=== PATIENT | male | born 1965 | race Caucasian/White ===

== ENCOUNTER → 2018-08-03 09:20 | Outpatient (CLI) | payer OTHER, SELFPAY ==
--- NOTE | 2018-08-03 09:22 | DI.RAD.S_ITS ---
PROCEDURE: XR CHEST 2V INDICATIONS: cough TECHNIQUE: 2 views of the chest were acquired. COMPARISON: None. FINDINGS: Surgical changes and devices: None. Lungs and pleura: No pleural effusions or pneumothorax. Lungs are clear. Mediastinum: Mediastinal contours are normal. Heart size is normal. Bones and chest wall: No suspicious bony abnormalities. Soft tissues appear unremarkable. IMPRESSION: No acute cardiopulmonary disease process. Dictated by: Carin Davis MD, PhD on 08/03/2018 at 9:27 Approved by: Carin Davis MD, PhD on 08/03/2018 at 9:27
[2018-08-03 10:30] LABS: Add Manual Diff / Slide Review NO; Basophils Percent Auto 0.4 % (0-2); Eosinophils Percent Auto 0.6 % (2-4); Hemoglobin 14.7 g/dL (13.5-17.5); Mean Corpuscular HGB Conc 33.5 % (30-36); Mean Corpuscular Hemoglobin 29.4 PG (26-34); Mean Corpuscular Volume 87.9 fL (80-100); Monocytes Percent Auto 9.9 % (3-14); Neutrophils Absolute Auto 6200 /uL (3000-5900); Neutrophils Percent Auto 64.1 % (50-75); Platelet Count 270 X10^3/uL (150-400); Red Cell Distribution Width 13.6 % (11.6-14.8); White Blood Cell Count 9.6 X10^3/uL (4.5-11.0)
[2018-08-03 10:53] LABS: Alanine Aminotransferase 34 IU/L (21-72); Albumin 4.4 g/dL (3.5-5.0); Albumin Globulin Ratio 1.6 (1.0-2.8); Alkaline Phosphatase 59 U/L (38-126); Aspartate Aminotransferase 24 IU/L (17-59); BUN Creatinine Ratio 16.3 (6-22); Bilirubin Total 0.5 mg/dL (0.2-1.3); Blood Urea Nitrogen 13 mg/dL (9-20); Calcium 9.7 mg/dL (8.4-10.2); Carbon Dioxide 28 mmol/L (22-32); Chloride 104 mmol/L (98-107); Estimated Glomerular Filt Rate > 60.0 mL/min (>60); Globulin 2.7 g/dL (1.7-4.1); Glucose 96 mg/dL (70-100); HEMOLYSIS < 15 (0-50); Potassium 4.7 mmol/L (3.4-5.1); Sodium 143 mmol/L (137-145); Total Protein 7.1 g/dL (6.3-8.2)
[2018-08-03 11:23] LABS: TSH w/ Reflex to FT4 0.71 uIU/mL (0.47-4.68)
== END ==
PROVIDERS: Visit Provider Physician Assistant
DX: R05 Cough (principal); R53.83 Other fatigue
CPT/HCPCS: 36415; 71046; 80053; 84443; 85025

== ENCOUNTER → 2020-07-06 09:22 | Outpatient (CLI) | payer OTHER, SELFPAY ==
[2020-07-08 09:08] LABS: COVID19 Sendout Not Detected (Not Detected)
== END ==
PROVIDERS: Visit Provider Physician Assistant
DX: Z11.59 Encounter for screening for other viral diseases (principal)
CPT/HCPCS: 87635

== ENCOUNTER 2020-07-08 08:27 | Inpatient (IN) | payer OTHER, SELFPAY ==
[2020-07-08] VITALS (29 sets, daily range): BP systolic 105–131; BP diastolic 50–74; PULSE 61–94; RESP 18–32; TEMP 36.9–39.1; O2SAT 94–99; BMI 24.4
--- NOTE | 2020-07-08 09:01 | DI.RAD.S_ITS ---
PROCEDURE: XR CHEST 1V INDICATIONS: sob TECHNIQUE: One view of the chest was acquired. COMPARISON: [facility], CR, XR CHEST 2V, 08/03/2018, 8:58. FINDINGS: Surgical changes and devices: None. Lungs and pleura: Mild airspace opacity at the left lung base. No pleural effusions or pneumothorax. Mediastinum: Mediastinal contours appear unchanged. Heart size is within normal limits. Bones and chest wall: No suspicious bony lesions. Overlying soft tissues appear unremarkable. IMPRESSION: Mild airspace opacity at the left lung base/inferior left upper lobe. This could represent pneumonia, atelectasis, or aspiration Dictated by: Juan Jose Russell M.D. on 07/08/2020 at 9:39 Approved by: Juan Jose Russell M.D. on 07/08/2020 at 9:41
--- NOTE | 2020-07-08 09:05 | ED_ITS ---
HPI - SOB/Dyspnea General Chief Complaint: Shortness of Breath/Dyspnea Stated Complaint: COVID, DIFFICULTY BREATHING Time Seen by Provider: 07/08/20 08:45 Source: patient Mode of arrival: Ambulatory Limitations: no limitations History of Present Illness HPI Narrative: Patient complains of dyspnea fever chills and dry cough for the past 3 days. Seen at an outpatient clinic and had code swab 2 days ago, results are pending. Temperature noted today. Has not taken any Tylenol or Motrin. Has not tried any medications for relief. Complains of body aches fatigue and tired and feeling very sleepy. Denies any specific contact with covid positive patient. Has nausea but no vomiting. No diarrhea. Related Data Previous Rx's Medication Instructions Recorded hydrocodone 5 mg-acetaminophen 325 1 tab PO Q4-6H PRN #20 tab 01/27/19 mg tablet mupirocin 2 % topical ointment 1 applictn TOP TID #15 gram 01/27/19 Allergies Allergy/AdvReac Type Severity Reaction Status Date / Time No Known Drug Allergies Allergy Verified 07/08/20 09:11 Review of Systems Review of Systems Narrative: GENERAL: Complains of chills, fatigue, malaise, fever, sweats. HEENT: Denies sinus pain, ear pain, sore throat, difficulty swallowing, dizziness. RESPIRATORY: Complains of dyspnea, cough, denies wheezing, hemoptysis, sputum. CARDIOVASCULAR: Denies chest pain, palpitations, orthopnea, edema, GASTROINTESTINAL: Denies nausea, vomiting, abdominal pain, diarrhea, constipation, melena. : Denies dysuria, frequency, incontinence, hematuria, urinary retention. MUSCULOSKELETAL: Complains of weakness, joint pain, and muscle aches SKIN: Denies rash, skin lesions, or other NEUROLOGIC: Denies weakness, headache, numbness, change in speech, confusion, seizures, incoordination. PSYCHIATRIC: No concerning psychosocial issues. ROS Unobtainable: All systems reviewed & are unremarkable except as noted in HPI and below Patient History Social History household members: spouse Smoking Status: Current every day smoker Smoking Status: Current every day smoker alcohol intake frequency: holidays/special occasions only Substance Use Type: marijuana Exam Narrative Exam Narrative: GENERAL: patient appears stated age. Well-nourished, well- developed patient, in no distress, not toxic HEAD: Atraumatic. Normocephalic. EYES: Pupils equal round and reactive. Extraocular motions intact. No scleral icterus. No injection or drainage. ENT: Nose without bleeding, purulent drainage. Throat without erythema, tonsillar hypertrophy or exudate. Airway patent. NECK: Trachea midline. Non tender CARDIOVASCULAR: Regular rate and rhythm without murmurs, gallops, or rubs. RESPIRATORY: Clear to auscultation. Breath sounds equal bilaterally. No wheezes, rales, or rhonchi. Speaks full sentences GASTROINTESTINAL: Abdomen soft, non-tender, nondistended. EXTREMITIES: No edema or joint tenderness. BACK: Nontender without deformity or crepitance. No flank tenderness. NEURO: AOx3. SKIN: No rash or erythema of visible areas PSYCH: Not anxious, is cooperative Initial Vital Signs Initial Vital Signs: Vital Signs Temperature 100.1 F H 07/08/20 08:44 Pulse Rate 79 07/08/20 08:44 Respiratory Rate 25 H 07/08/20 08:44 Blood Pressure 120/56 L 07/08/20 08:44 Pulse Oximetry 96 07/08/20 08:44 Course Course Decision to Admit Date: 07/08/20 Decision to Admit time: 11:06 Orders Ordered: ED Orders 07/08/20 08:50 Complete Blood Count AUTO DIFF Stat Comprehensive Metabolic Panel Stat Lactate (Lactic Acid) Stat Procalcitonin Stat 07/08/20 09:01 XR chest 1V Stat 07/08/20 11:20 Arterial Blood Gas Stat 07/08/20 11:44 Blood Culture Stat Acetaminophen (Tylenol) 650 mg PO Q6HR PRN PRN Reason: Fever/Mild Pain (1-3) Last Admin: 07/08/20 15:34 Dose: 650 mg Documented by: AMY Baclofen (Lioresal) 10 mg PO TID PRN PRN Reason: hiccups Last Admin: 07/08/20 15:34 Dose: 10 mg Documented by: AMY Calcium Carbonate (Tums) 1,000 mg PO Q4HR PRN PRN Reason: Dyspepsia Enoxaparin Sodium (Lovenox) 40 mg SUBCUT DAILY PARVEZ Sodium Chloride (Normal Saline 0.45%) 1,000 mls @ 100 mls/hr IV CONT PARVEZ Stop: 07/08/20 22:59 Last Admin: 07/08/20 14:55 Dose: 100 mls/hr Documented by: ROMELIA Ceftriaxone Sodium/Dextrose (Rocephin) 2 gm in 50 mls @ 100 mls/hr IV Q24H PARVEZ Azithromycin 500 mg/ Dextrose 250 mls @ 250 mls/hr IV Q24H PARVEZ Magnesium Hydroxide (Milk Of Magnesia) 30 ml PO DAILY PRN PRN Reason: Constipation Nicotine (Nicoderm) 14 mg TOP DAILY PRN PRN Reason: nicotine withdrawal Last Admin: 07/08/20 15:34 Dose: 14 mg Documented by: AMY Ondansetron HCl (Zofran) 4 mg IV Q8HR PRN PRN Reason: Nausea And Vomiting Zolpidem Tartrate (Ambien) 5 mg PO BEDTIME PRN PRN Reason: Sleep Discontinued Medications Acetaminophen (Tylenol) 975 mg PO NOW ONE Stop: 07/08/20 09:03 Last Admin: 07/08/20 09:06 Dose: 975 mg Documented by: SHAVONNE Albuterol/Ipratropium (Duoneb) 3 ml INH NOW ONE Stop: 07/08/20 11:05 Last Admin: 07/08/20 11:34 Dose: 3 ml Documented by: JEAN-CLAUDE Sodium Chloride (Normal Saline 0.9%) 1,000 mls @ 1,000 mls/hr IV BOLUS ONE Stop: 07/08/20 10:01 Last Infusion: 07/08/20 10:23 Dose: 0 mls/hr Documented by: Admin: 07/08/20 09:06 Dose: 1,000 mls/hr Documented by: SHAVONNE Ceftriaxone Sodium/Dextrose (Rocephin) 1 gm in 50 mls @ 100 mls/hr IV NOW ONE Stop: 07/08/20 11:32 Last Infusion: 07/08/20 12:18 Dose: 0 mls/hr Documented by: Admin: 07/08/20 11:49 Dose: 100 mls/hr Documented by: SHAVONNE Azithromycin 500 mg/ Dextrose 250 mls @ 250 mls/hr IV NOW ONE Stop: 07/08/20 11:04 Last Infusion: 07/08/20 13:18 Dose: 0 mls/hr Documented by: Admin: 07/08/20 11:25 Dose: 250 mls/hr Documented by: SHAVONNE Ondansetron HCl (Zofran) 4 mg IV NOW ONE Stop: 07/08/20 11:04 Last Admin: 07/08/20 11:26 Dose: 4 mg Documented by: SHAVONNE Pantoprazole Sodium (Protonix) 40 mg IV NOW ONE Stop: 07/08/20 11:05 Last Admin: 07/08/20 11:26 Dose: 40 mg Documented by: SHAVONNE Reevaluation(s) Reevaluation #1: Patient ambulated in hallway room air 95 96% however very tachypneic and dyspneic. Respiratory rate 28. Patient states he feels very winded and tired now Time: 11:06 Consultations Consultation #1: Spoke with hospitalist Dr. hanley, will admit Time: 12:37 Vital Signs Vital signs: Vital Signs - 8 hr 07/08/20 08:44 07/08/20 08:46 07/08/20 09:00 Temperature 100.1 F H Pulse Rate 79 73 78 Respiratory Rate 25 H Blood Pressure 120/56 L Pulse Oximetry 96 96 97 07/08/20 09:01 07/08/20 09:06 07/08/20 09:30 Temperature 100.1 F H Pulse Rate 79 76 Respiratory Rate Blood Pressure 131/60 111/55 L Pulse Oximetry 97 97 07/08/20 10:00 07/08/20 10:23 07/08/20 10:30 Temperature 98.5 F Pulse Rate 66 73 Respiratory Rate Blood Pressure 125/60 115/59 L Pulse Oximetry 95 94 07/08/20 10:50 07/08/20 11:00 07/08/20 11:30 Temperature Pulse Rate 66 63 Respiratory Rate Blood Pressure Pulse Oximetry 96 97 96 07/08/20 11:40 07/08/20 11:50 07/08/20 12:00 Temperature Pulse Rate 61 68 67 Respiratory Rate 32 H Blood Pressure 114/63 120/70 Pulse Oximetry 99 96 97 07/08/20 12:30 Temperature Pulse Rate 73 Respiratory Rate Blood Pressure 115/63 Pulse Oximetry 98 MDM - SOB/Dyspnea Lab Data Result diagrams: 07/08/20 08:50 07/08/20 08:50 Labs: Lab Results 07/08/20 07/08/20 07/08/20 Range/Units 08:50 08:50 08:50 WBC 9.1 (4.5-11.0) X10^3/uL RBC 4.14 L (4.5-5.9) X10^6/uL Hgb 12.2 L (13.5-17.5) g/dL Hct 35.3 L (41-53) % MCV 85.3 (80-100) fL MCH 29.4 (26-34) PG MCHC 34.5 (30-36) % RDW 13.1 (11.6-14.8) % Plt Count 123 L (150-400) X10^3/uL Neut % (Auto) 82.2 H (50-75) % Lymph % (Auto) 6.7 L (25-40) % [place] % (Auto) 11.0 (3-14) % Eos % (Auto) 0.0 L (2-4) % Baso % (Auto) 0.1 (0-2) % Neut # (Auto) 7500 H (5455-7086) /uL Lymph # (Auto) 600 L (6031-7170) /uL [place] # (Auto) 1000 H (0-900) /uL Eos # (Auto) 0 (0-450) /uL Baso # (Auto) 0 (0-100) /uL ABG pH (7.35-7.45) ABG pCO2 (35-45) mmHg ABG pO2 (80-100) mmHg ABG HCO3 (22-26) mmol/L ABG Total CO2 (21-31) mmol/L ABG O2 Saturation (95-100) % ABG Base Excess (-2-2) mmol/L FiO2 Sodium 125 L (137-145) mmol/L Potassium 3.5 (3.4-5.1) mmol/L Chloride 90 L (98-107) mmol/L Carbon Dioxide 26 (22-32) mmol/L BUN 25 H (9-20) mg/dL Creatinine 1.21 (0.66-1.25) mg/dL Estimated GFR > 60.0 (>60) mL/min BUN/Creatinine Ratio 20.7 (6-22) Glucose 129 H (70-100) mg/dL Hemoglobin A1c (4.0-6.0) % Lactate (0.7-2.1) mmol/L Calcium 8.7 (8.4-10.2) mg/dL Iron (49-181) ug/dL TIBC (261-462) ug/dL % Saturation (20-50) % Transferrin (206-381) mg/dL Ferritin (18-464) ng/mL Total Bilirubin 1.3 (0.2-1.3) mg/dL AST 43 (17-59) IU/L ALT 36 (<50) IU/L Alkaline Phosphatase 48 (38-126) U/L Total Protein 7.0 (6.3-8.2) g/dL Albumin 3.8 (3.5-5.0) g/dL Globulin 3.2 (1.7-4.1) g/dL Albumin/Globulin Ratio 1.2 (1.0-2.8) Procalcitonin 1.18 H (<0.5) ng/mL COVID-19 PCR (Negative) 07/08/20 07/08/20 07/08/20 Range/Units 08:50 08:50 08:51 WBC (4.5-11.0) X10^3/uL RBC (4.5-5.9) X10^6/uL Hgb (13.5-17.5) g/dL Hct (41-53) % MCV (80-100) fL MCH (26-34) PG MCHC (30-36) % RDW (11.6-14.8) % Plt Count (150-400) X10^3/uL Neut % (Auto) (50-75) % Lymph % (Auto) (25-40) % [place] % (Auto) (3-14) % Eos % (Auto) (2-4) % Baso % (Auto) (0-2) % Neut # (Auto) (6431-9266) /uL Lymph # (Auto) (0436-3893) /uL [place] # (Auto) (0-900) /uL Eos # (Auto) (0-450) /uL Baso # (Auto) (0-100) /uL ABG pH (7.35-7.45) ABG pCO2 (35-45) mmHg ABG pO2 (80-100) mmHg ABG HCO3 (22-26) mmol/L ABG Total CO2 (21-31) mmol/L ABG O2 Saturation (95-100) % ABG Base Excess (-2-2) mmol/L FiO2 Sodium (137-145) mmol/L Potassium (3.4-5.1) mmol/L Chloride (98-107) mmol/L Carbon Dioxide (22-32) mmol/L BUN (9-20) mg/dL Creatinine (0.66-1.25) mg/dL Estimated GFR (>60) mL/min BUN/Creatinine Ratio (6-22) Glucose (70-100) mg/dL Hemoglobin A1c 5.5 (4.0-6.0) % Lactate 1.2 (0.7-2.1) mmol/L Calcium (8.4-10.2) mg/dL Iron (49-181) ug/dL TIBC (261-462) ug/dL % Saturation (20-50) % Transferrin (206-381) mg/dL Ferritin (18-464) ng/mL Total Bilirubin (0.2-1.3) mg/dL AST (17-59) IU/L ALT (<50) IU/L Alkaline Phosphatase (38-126) U/L Total Protein (6.3-8.2) g/dL Albumin (3.5-5.0) g/dL Globulin (1.7-4.1) g/dL Albumin/Globulin Ratio (1.0-2.8) Procalcitonin (<0.5) ng/mL COVID-19 PCR Negative (Negative) 07/08/20 07/08/20 07/08/20 Range/Units 08:58 08:58 11:20 WBC (4.5-11.0) X10^3/uL RBC (4.5-5.9) X10^6/uL Hgb (13.5-17.5) g/dL Hct (41-53) % MCV (80-100) fL MCH (26-34) PG MCHC (30-36) % RDW (11.6-14.8) % Plt Count (150-400) X10^3/uL Neut % (Auto) (50-75) % Lymph % (Auto) (25-40) % [place] % (Auto) (3-14) % Eos % (Auto) (2-4) % Baso % (Auto) (0-2) % Neut # (Auto) (9021-3411) /uL Lymph # (Auto) (4582-2022) /uL [place] # (Auto) (0-900) /uL Eos # (Auto) (0-450) /uL Baso # (Auto) (0-100) /uL ABG pH 7.47 H (7.35-7.45) ABG pCO2 27.7 L (35-45) mmHg ABG pO2 72 L (80-100) mmHg ABG HCO3 20 L (22-26) mmol/L ABG Total CO2 21 (21-31) mmol/L ABG O2 Saturation 96 (95-100) % ABG Base Excess -3.0 L (-2-2) mmol/L FiO2 0.21 Sodium (137-145) mmol/L Potassium (3.4-5.1) mmol/L Chloride (98-107) mmol/L Carbon Dioxide (22-32) mmol/L BUN (9-20) mg/dL Creatinine (0.66-1.25) mg/dL Estimated GFR (>60) mL/min BUN/Creatinine Ratio (6-22) Glucose (70-100) mg/dL Hemoglobin A1c (4.0-6.0) % Lactate (0.7-2.1) mmol/L Calcium (8.4-10.2) mg/dL Iron 24 L (49-181) ug/dL TIBC 258 L (261-462) ug/dL % Saturation 9 L (20-50) % Transferrin 173 L (206-381) mg/dL Ferritin 610 H (18-464) ng/mL Total Bilirubin (0.2-1.3) mg/dL AST (17-59) IU/L ALT (<50) IU/L Alkaline Phosphatase (38-126) U/L Total Protein (6.3-8.2) g/dL Albumin (3.5-5.0) g/dL Globulin (1.7-4.1) g/dL Albumin/Globulin Ratio (1.0-2.8) Procalcitonin (<0.5) ng/mL COVID-19 PCR (Negative) Imaging Data Chest x-ray: Radiologist's Impression: [address] [address] XRay Report Signed Patient: MaryanneBlayne GMR#: [id number] : 1965Acct:[id number] Age/Sex: 54 / MDate of Service: 07/08/20 Loc: ED Accession Number: [id number] Procedure: XR chest 1V Ordering Provider: Saud Ho MD PROCEDURE: XR CHEST 1V INDICATIONS: sob TECHNIQUE: One view of the chest was acquired. COMPARISON: Merged With [facility], CR, XR CHEST 2V, 08/03/2018, 8:58. FINDINGS: Surgical changes and devices: None. Lungs and pleura: Mild airspace opacity at the left lung base. No pleural effusions or pneumothorax. Mediastinum: Mediastinal contours appear unchanged. Heart size is within norm al limits. Bones and chest wall: No suspicious bony lesions. Overlying soft tissues appear unremarkable. IMPRESSION: Mild airspace opacity at the left lung base/inferior left upper lobe. This could represent pneumonia, atelectasis, or aspiration Dictated by: Juan Jose Russell M.D. on 07/08/2020 at 9:39 Approved by: Juan Jose Russell M.D. on 07/08/2020 at 9:41 MDM Narrative Medical decision making narrative: Patient ABG PO2 below normal range. Patient dyspneic on exertion and at rest. Clinically needs admission for overnight stay for community-acquired pneumonia Discharge Plan Departure Patient Disposition: Admitted as Observation Clinical Impression: Acute hyponatremia, Thrombocytopenia Community acquired pneumonia Qualifiers: Laterality: left Lung location: unspecified part of lung Qualified Code(s): J 18.9 - Pneumonia, unspecified organism Discharge Date/Time: 07/08/20 14:00 Admit Date/Time: 07/08/20 12:40 Admit Provider: Margy Hanley
[2020-07-08] MEDS: ACETAMINOPHEN 325 MG TABLET 975 MG PO (09:06)
[2020-07-08] MEDS: SODIUM CHLORIDE 0.9% 1,000 ML 1000 ML IV (09:06)
[2020-07-08 09:10] LABS: Add Manual Diff / Slide Review NO; Basophils Absolute Auto 0 /uL (0-100); Basophils Percent Auto 0.1 % (0-2); Eosinophils Absolute Auto 0 /uL (0-450); Hematocrit 35.3 % (41-53); Hemoglobin 12.2 g/dL (13.5-17.5); Lymphocytes Absolute Auto 600 /uL (1100-4500); Lymphocytes Percent Auto 6.7 % (25-40); Mean Corpuscular HGB Conc 34.5 % (30-36); Mean Corpuscular Hemoglobin 29.4 PG (26-34); Mean Corpuscular Volume 85.3 fL (80-100); Monocytes Absolute Auto 1000 /uL (0-900); Neutrophils Absolute Auto 7500 /uL (1500-7000); Neutrophils Percent Auto 82.2 % (50-75); Platelet Count 123 X10^3/uL (150-400); Red Blood Cell Count 4.14 X10^6/uL (4.5-5.9); Red Cell Distribution Width 13.1 % (11.6-14.8); White Blood Cell Count 9.1 X10^3/uL (4.5-11.0)
[2020-07-08 09:21] LABS: Lactate (Lactic Acid) 1.2 mmol/L (0.7-2.1)
[2020-07-08 09:22] LABS: Alanine Aminotransferase 36 IU/L (<50); Albumin 3.8 g/dL (3.5-5.0); Albumin Globulin Ratio 1.2 (1.0-2.8); Alkaline Phosphatase 48 U/L (38-126); Aspartate Aminotransferase 43 IU/L (17-59); BUN Creatinine Ratio 20.7 (6-22); Bilirubin Total 1.3 mg/dL (0.2-1.3); Blood Urea Nitrogen 25 mg/dL (9-20); Calcium 8.7 mg/dL (8.4-10.2); Carbon Dioxide 26 mmol/L (22-32); Chloride 90 mmol/L (98-107); Estimated Glomerular Filt Rate > 60.0 mL/min (>60); Globulin 3.2 g/dL (1.7-4.1); Glucose 129 mg/dL (70-100); HEMOLYSIS < 15 (0-50); Potassium 3.5 mmol/L (3.4-5.1); Sodium 125 mmol/L (137-145)
[2020-07-08 09:38] LABS: Procalcitonin 1.18 ng/mL (<0.5)
[2020-07-08 10:06] LABS: COVID19 -Nasal RAPID Negative (Negative)
--- NOTE | 2020-07-08 10:57 | PC.NURSE ---
Ambulated patient per Dr Ho request. Pulse ox remained at 96% on RA. Patient reported nausea but denied shortness or breath. Provider notified.
[2020-07-08] MEDS: AZITHROMYCIN 500 MG in DEXTROSE 5% IN WATER 250 ML IV (11:25)
[2020-07-08] MEDS: PANTOPRAZOLE 40 MG VIAL IV (11:26)
[2020-07-08] MEDS: ONDANSETRON 4 MG/2 ML INJ IV (11:26)
[2020-07-08] MEDS: ALBUTEROL/IPRATROPIUM 3 ML AMPUL INH (11:34)
[2020-07-08] MEDS: CEFTRIAXONE 1 GM/50 ML FROZ.PIGGY IV (11:49)
[2020-07-08 11:56] LABS: HCO3 ABG 20 mmol/L (22-26); Oxygen Saturation ABG 96 % (95-100); PCO2 ABG 27.7 mmHg (35-45); PO2 ABG 72 mmHg (80-100); TCO2 ABG 21 mmol/L (21-31); pH ABG 7.47 (7.35-7.45)
[2020-07-08 11:57] LABS: Fractionated Inspired Oxygen 0.21
--- NOTE | 2020-07-08 13:01 | P.HP_ITS ---
History of Present Illness History of Present Illness Date Patient Seen: 07/08/20 Time Patient Seen: 12:45 Date of Onset of Symptoms: 07/04/20 Chief complaint: COVID, DIFFICULTY BREATHING Narrative: Patient is a 54-year-old male smoker who presented to the emergency department with complaints of fevers, chills, sweats and shortness of breath for the previous 4-5 days. He 1st became ill on TuesdayJuly 04 when developed severe fatigue, chills and sweats, and dry cough. He was concerned about COVID and isolated himself in the garage and contacted his workplace. He got tested on July 06 at the walk-in clinic which subsequently came back negative for COVID-19. His symptoms have worsened over the past 4-5 days prompting him to c ome to the ER for evaluation. His temp was 100.1? with otherwise normal vitals. On room air blood gas his PO2 is 72. His sodium was 125, BUN 25 and creatinine 1.21. His glucose was 129. He has not eaten much in the past few days. He has also had some nausea, vomiting and diarrhea. His WBC was 9.1 with left shift, hemoglobin 12.2, hematocrit 35.3, platelets 123. Procalcitonin 1.18. Normal la ctate level of 1.2. Chest x-ray showed infiltrate at left lung base and inferior left lobe. Additionally he has had intractable hiccups the last day. And he reports some symptoms of delirium with seeing things while isolated in the garage. Patient smokes less than 1 pack per day with 43 year smoking history. No EtOH. Family history unremarkable for cancers, CAD or diabetes. He works at [employer]. Patient History Family & Social History Safety & Behavioral: Feels Safe in Current Yes Environment Tobacco & Substance use: Smoking Status Current every day smoker alcohol intake frequency holiday/special occasion Substance Use Type marijuana Meds Home Medications and Allergies Home Medications Medication Instructions Recorded Confirmed Type hydrocodone 5 mg-acetaminophen 325 1 tab PO Q4-6H PRN #20 tab 01/27/19 Rx mg tablet mupirocin 2 % topical ointment 1 applictn TOP TID #15 gram 01/27/19 Rx Allergies Allergy/AdvReac Type Severity Reaction Status Date / Time No Known Drug Allergies Allergy Verified 07/08/20 09:11 Review of Systems Review of Systems ROS: Yes All systems reviewed with the patient and are negative except as otherwise documented Exam Vital Signs (past 8 hours): - 07/08/20 08:44 07/08/20 08:46 07/08/20 09:00 Temperature 100.1 F H Pulse Rate 79 73 78 Respiratory Rate 25 H Blood Pressure 120/56 L Pulse Oximetry 96 96 97 07/08/20 09:01 07/08/20 09:06 07/08/20 09:30 Temperature 100.1 F H Pulse Rate 79 76 Respiratory Rate Blood Pressure 131/60 111/55 L Pulse Oximetry 97 97 07/08/20 10:00 07/08/20 10:23 07/08/20 10:30 Temperature 98.5 F Pulse Rate 66 73 Respiratory Rate Blood Pressure 125/60 115/59 L Pulse Oximetry 95 94 07/08/20 10:50 07/08/20 11:00 07/08/20 11:30 Temperature Pulse Rate 66 63 Respiratory Rate Blood Pressure Pulse Oximetry 96 97 96 07/08/20 11:40 07/08/20 11:50 07/08/20 12:00 Temperature Pulse Rate 61 68 67 Respiratory Rate 32 H Blood Pressure 114/63 120/70 Pulse Oximetry 99 96 97 07/08/20 12:30 Temperature Pulse Rate 73 Respiratory Rate Blood Pressure 115/63 Pulse Oximetry 98 Oxygen Delivery Method Room Air Narrative Exam Narrative: GENERAL: This is an alert but ill-appearing male. HEAD: Atraumatic. Normocephalic. EYES: Pupils equal, round and reactive. Extraocular motions intact. No scleral icterus. No injection or drainage. OROPHARYNX: Dry oral mucosa NECK: Trachea midline. No JVD or lymphadenopathy. CARDIOVASCULAR: Regular rate and rhythm without murmurs, gallops, or rubs. RESPIRATORY: Breathing nonlabored, there are crackles in the left lower lobe, no wheezing. GASTROINTESTINAL: Abdomen nondistended, soft, non-tender. No hepato- splenomegaly, or palpable masses. EXTREMITIES: No edema. NEUROLOGICAL: Alert, well oriented, speech is intact, normal bilateral upper and lower extremity strength SKIN: warm, dry, no rash Objective Labs Result Diagrams: 07/08/20 08:50 07/08/20 08:50 Labs: Laboratory Results - last 24 hr 07/08/20 07/08/20 07/08/20 08:50 08:50 08:50 WBC 9.1 RBC 4.14 L Hgb 12.2 L Hct 35.3 L MCV 85.3 MCH 29.4 MCHC 34.5 RDW 13.1 Plt Count 123 L Neut % (Auto) 82.2 H Lymph % (Auto) 6.7 L [place] % (Auto) 11.0 Eos % (Auto) 0.0 L Baso % (Auto) 0.1 Neut # (Auto) 7500 H Lymph # (Auto) 600 L [place] # (Auto) 1000 H Eos # (Auto) 0 Baso # (Auto) 0 ABG pH ABG pCO2 ABG pO2 ABG HCO3 ABG Total CO2 ABG O2 Saturation ABG Base Excess FiO2 Sodium 125 L Potassium 3.5 Chloride 90 L Carbon Dioxide 26 BUN 25 H Creatinine 1.21 Estimated GFR > 60.0 BUN/Creatinine Ratio 20.7 Glucose 129 H Lactate Calcium 8.7 Total Bilirubin 1.3 AST 43 ALT 36 Alkaline Phosphatase 48 Total Protein 7.0 Albumin 3.8 Globulin 3.2 Albumin/Globulin Ratio 1.2 Procalcitonin 1.18 H COVID-19 PCR 07/08/20 07/08/20 07/08/20 08:50 08:51 11:20 WBC RBC Hgb Hct MCV MCH MCHC RDW Plt Count Neut % (Auto) Lymph % (Auto) [place] % (Auto) Eos % (Auto) Baso % (Auto) Neut # (Auto) Lymph # (Auto) [place] # (Auto) Eos # (Auto) Baso # (Auto) ABG pH 7.47 H ABG pCO2 27.7 L ABG pO2 72 L ABG HCO3 20 L ABG Total CO2 21 ABG O2 Saturation 96 ABG Base Excess -3.0 L FiO2 0.21 Sodium Potassium Chloride Carbon Dioxide BUN Creatinine Estimated GFR BUN/Creatinine Ratio Glucose Lactate 1.2 Calcium Total Bilirubin AST ALT Alkaline Phosphatase Total Protein Albumin Globulin Albumin/Globulin Ratio Procalcitonin COVID-19 PCR Negative Assessment & Plan Assessment & Plan narrative: This is a 54-year-old male smoker presenting with respiratory symptoms, chest x-ray consistent with left lung pneumonia. 1. Bacterial pneumonia, present on admission, active -presents with fevers, chills, cough, left lung infiltrates, elevated procalcitonin, normal WBC, normal lactate, negative COVID-19 x2 -continue Rocephin IV, Zithromax IV -Tylenol as needed -supplemental O2 if needed, not currently hypoxic -repeat CBC, procalcitonin in a.m. -follow-up on blood cultures 2. Acute dehydration, present on admission, active -sodium 125, BUN 25, creatinine 1.21, reported not eating or taking much fluids last few days -received 1 L NS in the ED, provide additional 1 L NS 100 cc/hour -repeat BMP in a.m. 3. Thrombocytopenia, normocytic anemia, present on admission, active -acuity unknown but likely acute illness related -obtain iron profile, ferritin -repeat CBC in a.m. 4. Hyperglycemia, present on admission, active -serum glucose 129, likely stress hyperglycemia -check hemoglobin A1c 5. Nausea, vomiting and diarrhea, present on admission, active -related to pneumonia -provide Zofran as needed -diet as tolerated 6. Acute encephalopathy, present prior to admission, now resolved -as noted patient was seeing things but currently without evidence of delirium, continue to monitor 7. Intractable hiccups, present on admission, active -secondary to lower lobe pneumonia -baclofen 10 mg t.i.d. as needed Admit status: Inpatient acute DPOA: Spouse DVT prophylaxis: Lovenox
[2020-07-08 13:55] LABS: Hemoglobin A1C% w Est Avg Glu 5.5 % (4.0-6.0)
--- NOTE | 2020-07-08 14:08 | PC.NURSE ---
Day shift: Pt on AC unit from ED at approx 1400. Oriented to room and call light. Agrees to not get OOB w/o help from staff. No recent falls at home. VS WNL. IV fluids running per JAN. Pt does have an intermittent cough. He is A&Ox3. Denies any pain or nausea. 95% RA at this time.
[2020-07-08 14:28] LABS: HEMOLYSIS < 15 (0-50); Iron 24 ug/dL (49-181)
[2020-07-08 14:40] LABS: Percent Iron Saturation 9 % (20-50); Total Iron Binding Capacity 258 ug/dL (261-462); Transferrin 173 mg/dL (206-381)
[2020-07-08] MEDS: SODIUM CHLORIDE 0.45% 1,000 ML 100 ML IV (14:55)
[2020-07-08 15:04] LABS: Ferritin 610 ng/mL (18-464)
[2020-07-08] MEDS: ACETAMINOPHEN 325 MG TABLET 650 MG PO ×2 (15:34→21:27)
[2020-07-08] MEDS: NICOTINE 14 PATCH 14 MG TOP (15:34)
[2020-07-08] MEDS: BACLOFEN 10 MG TABLET PO ×2 (15:34→21:27)
--- NOTE | 2020-07-08 19:10 | PC.NURSE ---
Addendum entered by Kristina Brooks R.N. 07/08/20 22:34: pt's temp is down to 99.8. pt has a new sore throat. pt reports he had an episode of hallucination. family at bedside. bed alarm active. Original Note: febrile at the beginning of the shift, administered tylenol, removed blankets. temp went down to 100.8. placed ice packs in his armpits, pt's current temp is 100.4. continue to monitor.
--- NOTE | 2020-07-08 23:35 | PC.NURSE ---
Addendum entered by Luh Simons R.N. 07/09/20 05:39: States Nicoderm patch placed yesterday fell off at some point. Examined patient and could not find patch so replaced per patient request. Addendum entered by Luh Simons R.N. 07/09/20 05:15: Temp 100.7 and patient having repeated hiccoughs this morning; medicated with Tylenol + Baclofen. Original Note: Patient is alert and oriented. Breath sounds diminished with expiratory rhonchi throughout. Intermittent, moist, non productive cough. Some SOB at rest/with exertion but RA sat is 94%. HRR. Denies nausea. BT hypoactive but is passing flatus. Voiding per urinal without dysuria. Able to move himself in bed. Up with SBA. Reports he has been having some vivid hallucinations here about working on his laptop. Generalized discomfort. Temp 100.6 but had Tylenol at 2127 so provided ice packs and recheck at the 4h nae and reevaluate. rooming in.
[2020-07-09] VITALS (15 sets, daily range): BP systolic 96–128; BP diastolic 54–73; PULSE 73–92; RESP 16–20; TEMP 36.8–39.1; O2SAT 93–98; BMI 24.2
[2020-07-09] MEDS: ACETAMINOPHEN 325 MG TABLET 650 MG PO ×2 (05:04→10:18)
[2020-07-09] MEDS: BACLOFEN 10 MG TABLET PO (05:05)
[2020-07-09] MEDS: NICOTINE 14 PATCH 14 MG TOP (05:34)
[2020-07-09 05:58] LABS: Hematocrit 32.8 % (41-53); Hemoglobin 11.6 g/dL (13.5-17.5); Mean Corpuscular HGB Conc 35.4 % (30-36); Mean Corpuscular Hemoglobin 29.8 PG (26-34); Mean Corpuscular Volume 84.3 fL (80-100); Platelet Count 117 X10^3/uL (150-400); Red Cell Distribution Width 13.4 % (11.6-14.8)
[2020-07-09 06:02] LABS: Add Manual Diff / Slide Review YES; BUN Creatinine Ratio 22.4 (6-22); Blood Urea Nitrogen 24 mg/dL (9-20); Calcium 7.7 mg/dL (8.4-10.2); Carbon Dioxide 21 mmol/L (22-32); Chloride 91 mmol/L (98-107); Estimated Glomerular Filt Rate > 60.0 mL/min (>60); Glucose 103 mg/dL (70-100); HEMOLYSIS < 15 (0-50); Potassium 3.4 mmol/L (3.4-5.1); Sodium 122 mmol/L (137-145)
[2020-07-09 06:14] LABS: Neutrophils Absolute Manual 7120 /uL (3000-5900); RBC Morphology Normal Morphology; Total Cells Counted 100
[2020-07-09 06:43] LABS: Procalcitonin 3.39 ng/mL (<0.5)
[2020-07-09] MEDS: ENOXAPARIN 40 MG/0.4 ML SYRINGE SUBCUT (08:06)
[2020-07-09] MEDS: CEFTRIAXONE 2 GM/50 ML FROZ.PIGGY IV (08:07)
[2020-07-09] MEDS: SODIUM CHLORIDE 0.9% 250 ML 21 ML IV (08:07)
[2020-07-09] MEDS: SODIUM CHLORIDE 0.9% FLUSH 10 ML IV ×3 (08:07→21:32)
[2020-07-09] MEDS: AZITHROMYCIN 500 MG in DEXTROSE 5% IN WATER 250 ML IV (10:15)
[2020-07-09] MEDS: ONDANSETRON 4 MG/2 ML INJ IV (10:19)
--- NOTE | 2020-07-09 10:40 | CM.DANOTE ---
Patient is a 54 year old male who was admitted on 07/08/20 for Difficulty Breathing. Pt has [employer] for insurance and his PCP is not listed. EMR was reviewed. Per MD, pt with negative COVID and admitted for bacterial pneumonia and dehydration. Pt with fever and some hallucinations/delusions expected to resolve after hydrated and reduced fever and will plan to have pt ambulate today to check his sats and confirm his SOB stable. Pt resides at home with his spouse in [place] and is independent with ADL's at baseline and works and denies any need for DME for ambulation. Pt anticipates d/c home with spouse support when medically stable. Plan: SW to follow closely to confirm pt safe for d/c home with spouse likely tomorrow pending oxygen levels/sats with ambulation and resolved fever. JESENIA Lara Discharge Planning/Care Management CM Discharge Assessment Start: 07/09/20 10:39 Freq: Status: Active Protocol: Document 07/09/20 10:39 BF (Rec: 07/09/20 10:40 BF [id number]) Discharge Planning Assessment Assigned Outbound Telemarketing Representative HEVER Deras DPOA/Assigned Designee Name none Advance Directives? No Advance Directives on File No History Provided By Patient,Medical Record Has Patient been admitted in last 30 No days? Prior Living Arrangements House Household Members spouse Type of transporation used prior to Drives own vehicle admit Independent with ADL's Yes Is patient alert and oriented? Yes Comment Likely home with spouse support when stable Barriers to Discharge No Discharge Plan Home Transportation Arrangement Spouse local and can provide transport at d/c Referrals Initiated None needed Review Status In Process Please Provide Date Initial DC 07/09/20 Assessment Was Performed Next Review Type Continued Stay Review
[2020-07-09] MEDS: ACETAMINOPHEN 650 MG SUPP PR (16:31)
--- NOTE | 2020-07-09 17:24 | PM.PN.1 ---
Subjective Subjective Date Patient Seen: 07/09/20 Interval history: Patient is a 54-year-old male who was admitted to the hospital for community-acquired pneumonia. He continues to have low-grade fevers. Patient continues to have hip cup and a feeling of air in his stomach. He has requested IV Tylenol but will continue with oral Tylenol as well as ibuprofen as needed for fever. Exam Vital Signs (past 8 hours): - 07/09/20 11:31 07/09/20 15:50 Temperature 100.8 F H 102.3 F H Pulse Rate 86 87 Respiratory Rate 16 20 Blood Pressure 107/54 L 120/73 Pulse Oximetry 93 94 Oxygen Delivery Method Room Air Oxygen Flow Rate 0 Narrative Exam Narrative: Ill-appearing male lying in bed Lungs: Decreased breath sounds with occasional scattered basilar rhonchi Cardiac exam: Regular rate and rhythm normal S1-S2 Abdomen: Soft nontender nondistended Extremities: No edema Objective Labs Result Diagrams: 07/09/20 05:32 07/09/20 05:32 Labs: Laboratory Results - last 24 hr 07/09/20 07/09/20 07/09/20 05:32 05:32 05:32 WBC 8.0 RBC 3.90 L Hgb 11.6 L Hct 32.8 L MCV 84.3 MCH 29.8 MCHC 35.4 RDW 13.4 Plt Count 117 L Neut % (Auto) Not Reportable Lymph % (Auto) Not Reportable [place] % (Auto) Not Reportable Eos % (Auto) Not Reportable Baso % (Auto) Not Reportable Lymph # (Auto) Not Reportable [place] # (Auto) Not Reportable Baso # (Auto) Not Reportable Total Counted 100 Seg Neutrophils % 77.0 H Band Neutrophils % 12.0 H Lymphocytes % (Manual) 8.0 L Monocytes % (Manual) 3.0 Neutrophils # (Manual) 7120 H RBC Morphology Normal morphology Sodium 122 L Potassium 3.4 Chloride 91 L Carbon Dioxide 21 L BUN 24 H Creatinine 1.07 Estimated GFR > 60.0 BUN/Creatinine Ratio 22.4 H Glucose 103 H Calcium 7.7 L Procalcitonin 3.39 H Assessment & Plan Assessment & Plan narrative: Bacterial pneumonia, present on admission, active -presents with fevers, chills, cough, left lung infiltrates, elevated procalcitonin, normal WBC, normal lactate, negative COVID-19 x2 -continue Rocephin IV, Zithromax IV -Tylenol as needed -supplemental O2 if needed, not currently hypoxic -repeat CBC, procalcitonin in a.m. -follow-up on blood cultures 2. Acute dehydration, present on admission, active -sodium 125, BUN 25, creatinine 1.21, reported not eating or taking much fluids last few days -received 1 L NS in the ED, provide additional 1 L NS 100 cc/hour -repeat BMP in a.m. 3. Thrombocytopenia, normocytic anemia, present on admission, active -acuity unknown but likely acute illness related -obtain iron profile, ferritin -repeat CBC in a.m. 4. Hyperglycemia, present on admission, active -serum glucose 129, likely stress hyperglycemia -check hemoglobin A1c 5. Nausea, vomiting and diarrhea, present on admission, active -related to pneumonia -provide Zofran as needed -diet as tolerated 6. Acute encephalopathy, present prior to admission, now resolved -as noted patient was seeing things but currently without evidence of delirium, continue to monitor 7. Intractable hiccups, present on admission, active -secondary to lower lobe pneumonia -baclofen 10 mg t.i.d. as needed -consider held off this persists 8. Hyponatremia -will discontinue IV hydration -will obtain serum osmolality -will start 1200 cc free water restriction -low-sodium may be reflective underlying pneumonia
[2020-07-09] MEDS: KETOROLAC 30 MG/ML VIAL IV (18:35)
--- NOTE | 2020-07-09 19:10 | PC.NURSE ---
febrile. pt refused oral tylenol and baclofen. pt reports that the pills gives him hiccups. notified physician. Pt is now on [place] tylenol and toradol applied ice packs for fever 102.3.
--- NOTE | 2020-07-09 21:22 | PC.NURSE ---
Received call from patient's sister (an [employer]) who is very concerned about her brother. She is worried about potential AMANDA due to hypovolemia. She thinks he is not getting enough fluid and is getting worse not better, that he is getting septic. I reassured her as best I could that he was/is getting the best treeatment possible, that I would try to get the Hospitalist to call her and I also offered that if she felt the patient was not getting the care she felt he needed, that she could always come and sign him out of this hospital and take him somewhere else.
[2020-07-10] VITALS (14 sets, daily range): BP systolic 90–135; BP diastolic 55–75; PULSE 77–102; RESP 16–24; TEMP 36.9–39.2; O2SAT 92–100
[2020-07-10] MEDS: KETOROLAC 30 MG/ML VIAL IV ×5 (00:07→23:27)
--- NOTE | 2020-07-10 04:36 | PC.NURSE ---
Report from off going nurse that Patient's sister is wondering why we are doing enough for patient, want to speak with doctor. I let Zamzam Mcmanus know that sister would like to speak to her. Sister was threatening to take come and take patient to a different facility. Follow up w/ Zamzam Mcmanus, she had communication and discussion w/ update to sister. Patient VSS on this shift, no fever, temp was 98.2, 98.5. Patient lung sounds Dim/Course on left side. Patient has intermittent cough, non productive. Denies pain or nausea. Patient woke up diaphoretic at start of shift, offered new gown and temp was taken.
[2020-07-10 06:57] LABS: Mean Corpuscular HGB Conc 35.1 % (30-36); Mean Corpuscular Hemoglobin 29.8 PG (26-34); Platelet Count 128 X10^3/uL (150-400); Red Blood Cell Count 4.35 X10^6/uL (4.5-5.9); Red Cell Distribution Width 13.5 % (11.6-14.8); White Blood Cell Count 9.8 X10^3/uL (4.5-11.0)
[2020-07-10 07:00] LABS: Add Manual Diff / Slide Review YES
[2020-07-10 07:25] LABS: BUN Creatinine Ratio 26.8 (6-22); Blood Urea Nitrogen 30 mg/dL (9-20); Carbon Dioxide 23 mmol/L (22-32); Chloride 93 mmol/L (98-107); Estimated Glomerular Filt Rate > 60.0 mL/min (>60); Glucose 97 mg/dL (70-100); HEMOLYSIS < 15 (0-50); Potassium 3.4 mmol/L (3.4-5.1); Sodium 126 mmol/L (137-145)
[2020-07-10 08:05] LABS: Neutrophils Absolute Manual 8624 /uL (3000-5900); Total Cells Counted 100
[2020-07-10 08:07] LABS: RBC Morphology Normal Morphology
[2020-07-10] MEDS: ENOXAPARIN 40 MG/0.4 ML SYRINGE SUBCUT (08:46)
[2020-07-10] MEDS: CEFTRIAXONE 2 GM/50 ML FROZ.PIGGY IV (08:46)
[2020-07-10] MEDS: SODIUM CHLORIDE 0.9% FLUSH 10 ML IV (08:47)
[2020-07-10] MEDS: BACLOFEN 10 MG TABLET PO (08:47)
[2020-07-10] MEDS: NICOTINE 14 PATCH 14 MG TOP (09:07)
[2020-07-10] MEDS: SODIUM CHLORIDE 0.9% 1,000 ML 100 ML IV ×2 (09:10→21:07)
[2020-07-10] MEDS: POTASSIUM CHLORIDE 20 MEQ TAB 40 MEQ PO (09:10)
--- NOTE | 2020-07-10 09:15 | PM.PN.1 ---
Subjective Subjective Date Patient Seen: 07/10/20 Time Patient Seen: 09:16 Interval history: Patient is a 54-year-old male who was admitted to the hospital for bacterial pneumonia. He appears to be defervescing with last fever was 101.9 at 6:00 p.m. yesterday. He is having intractable hiccups in spite of baclofen. He is coughing a little bit more. Denies dyspnea. Remains hyponatremic with serum sodium 126 this a.m.. Exam Vital Signs (past 8 hours): - 07/10/20 04:00 07/10/20 04:16 07/10/20 08:00 Temperature 98.5 F 99.0 F Pulse Rate 77 80 Respiratory Rate 18 18 Blood Pressure 114/60 90/55 L Pulse Oximetry 97 97 92 Oxygen Delivery Method Room Air Oxygen Flow Rate 0 Narrative Exam Narrative: General: Alert but in distress due to hip cups Lungs: Clear to auscultation Heart: Regular rhythm Extremities: No edema Neurological: Sensorium intact, nonfocal Objective Labs Result Diagrams: 07/10/20 06:30 07/10/20 06:30 Labs: Laboratory Results - last 24 hr 07/10/20 07/10/20 06:30 06:30 WBC 9.8 RBC 4.35 L Hgb 13.0 L Hct 37.0 L MCV 85.0 MCH 29.8 MCHC 35.1 RDW 13.5 Plt Count 128 L Neut % (Auto) Not Reportable Lymph % (Auto) Not Reportable [place] % (Auto) Not Reportable Eos % (Auto) Not Reportable Baso % (Auto) Not Reportable Lymph # (Auto) Not Reportable [place] # (Auto) Not Reportable Baso # (Auto) Not Reportable Total Counted 100 Seg Neutrophils % 80.0 H Band Neutrophils % 8.0 H Lymphocytes % (Manual) 5.0 L Monocytes % (Manual) 5.0 Eosinophils % (Manual) 1.0 L Metamyelocytes % 1.0 H Neutrophils # (Manual) 8624 H RBC Morphology Normal morphology Sodium 126 L Potassium 3.4 Chloride 93 L Carbon Dioxide 23 BUN 30 H Creatinine 1.12 Estimated GFR > 60.0 BUN/Creatinine Ratio 26.8 H Glucose 97 Calcium 8.0 L Assessment & Plan Assessment & Plan narrative: 1. Bacterial pneumonia, present on admission, active -presented with fevers, chills, cough, left lung infiltrates, elevated procalcitonin, normal WBC, normal lactate, negative COVID-19 x2, not hypoxic -fever resolving -continue Rocephin IV, Zithromax IV -Tylenol and ibuprofen as needed -blood cultures negative -repeat procalcitonin -repeat chest x-ray in 1 month to ensure resolution of x-ray abnormalities 2. Acute dehydration, present on admission, active -sodium 125, BUN 25, creatinine 1.21, reported not eating or taking much fluids last few days -received 1 L NS in the ED, provide additional 1 L NS 100 cc/hour -still hyponatremic and likely volume depleted, resume NS 100 cc/hour -K 3.4, provide KCL 40 mEq p.o. -recheck electrolytes Na a 3. Thrombocytopenia, iron deficient anemia, present on admission, active -iron profile with % saturation of 9 consistent with chronic iron deficiency anemia, patient has not had a colonoscopy, patient has history of chronic epigastric pain -recommend outpatient colonoscopy and EGD -platelets improved 4. Hyperglycemia, present on admission, active -serum glucose 129, likely stress hyperglycemia -hemoglobin A1c 5.5, normal 5. Nausea, vomiting and diarrhea, present on admission, resolved -diet as tolerated 6. Acute encephalopathy, present prior to admission, resolved -as noted patient was seeing things but currently without evidence of delirium, continue to monitor 7. Intractable hiccups, present on admission, active -secondary to lower lobe pneumonia -discontinue baclofen, start Thorazine 25 mg t.i.d. 8. Hyponatremia -likely volume depletion, patient with little p.o. intake prior to admission, elevated BUN to creatinine ratio -resume NS 100 cc/hour -non restricted diet 9. Cigarette nicotine dependency, active -encouraged to quit smoking -nicotine patch as needed Updated patient's sister Rosette who is RN. Her contact number is [phone]. Patient with improving hospital course and possibly can discharge home tomorrow on oral antibiotics.
[2020-07-10] MEDS: chlorproMAZINE 25 MG TABLET PO ×3 (10:05→21:06)
[2020-07-10] MEDS: AZITHROMYCIN 500 MG in DEXTROSE 5% IN WATER 250 ML IV (10:14)
--- NOTE | 2020-07-10 10:49 | CM.DPC ---
DCP: continued: case received and met briefly with pt during Team Bedside Rounds. Pt was found sitting on side of bed, emesis bag at hand. Hiccupping continuously and attempting to speak with Dr. Light through this process. Dr. Light noted that pt would likely be ready for d/c to home setting in a day or two as his pneumonia improves. He encouraged pt to establish TERRELL with a PCP. Pt confirms he does not have one, that he had been accepted a couple of years ago by Marilynn Mao but never saw her and she is no longer working in this area. FARHAT Maldonado agrees to provide pt and his , at bedside, some contact numbers for [facility] providers and to further encourage pt to do this right away. P: DCP team will follow prn.
--- NOTE | 2020-07-10 21:50 | DI.RAD.S_ITS ---
PROCEDURE: XR CHEST 1V INDICATIONS: pneumonia TECHNIQUE: One view of the chest was acquired. COMPARISON: [facility], CR, XR CHEST 1V, 07/08/2020, 9:11. FINDINGS: Surgical changes and devices: None. Lungs and pleura: Small left-sided pleural effusion. There is increased consolidation in the left lung base. There is increasing opacification of the right lung. Mediastinum: Mediastinal contours appear normal. Heart size is normal. Bones and chest wall: No suspicious bony lesions. Overlying soft tissues appear unremarkable. IMPRESSION: Increased consolidation in the left lung base and increasing opacification of the right lung compatible with progression of multilobar pneumonia. Dictated by: Carin Davis MD, PhD on 07/10/2020 at 8:24 Approved by: Carin Davis MD, PhD on 07/10/2020 at 8:25
[2020-07-10] MEDS: ACETAMINOPHEN 325 MG TABLET 650 MG PO (22:47)
[2020-07-10] MEDS: MELATONIN 3 MG TABLET 6 MG PO (23:27)
[2020-07-11] VITALS (14 sets, daily range): BP systolic 112–138; BP diastolic 63–79; PULSE 72–83; RESP 16–19; TEMP 36.2–38.1; O2SAT 92–96
[2020-07-11] MEDS: chlorproMAZINE 25 MG TABLET PO ×2 (05:45→19:44)
[2020-07-11] MEDS: KETOROLAC 30 MG/ML VIAL IV ×4 (06:20→23:42)
--- NOTE | 2020-07-11 06:27 | PC.NURSE ---
A new rash/blisters were noticed during a lab draw at approximately 0615. Rash starts near pt's axilla and extends near L nipple. Rash also present on both sides of upper back. ROBERT Mcmanus notified - ordered 25mg Benadryl. Pt has no c/o of discomfort, pain or itching.
[2020-07-11 06:38] LABS: Add Manual Diff / Slide Review NO; Basophils Absolute Auto 0 /uL (0-100); Basophils Percent Auto 0.3 % (0-2); Eosinophils Absolute Auto 100 /uL (0-450); Eosinophils Percent Auto 1.3 % (2-4); Hemoglobin 11.7 g/dL (13.5-17.5); Lymphocytes Absolute Auto 600 /uL (1100-4500); Lymphocytes Percent Auto 6.1 % (25-40); Mean Corpuscular HGB Conc 34.4 % (30-36); Mean Corpuscular Hemoglobin 29.5 PG (26-34); Mean Corpuscular Volume 85.8 fL (80-100); Monocytes Absolute Auto 500 /uL (0-900); Monocytes Percent Auto 5.9 % (3-14); Neutrophils Absolute Auto 8000 /uL (1500-7000); Neutrophils Percent Auto 86.4 % (50-75); Platelet Count 148 X10^3/uL (150-400); Red Blood Cell Count 3.97 X10^6/uL (4.5-5.9); Red Cell Distribution Width 13.4 % (11.6-14.8); White Blood Cell Count 9.3 X10^3/uL (4.5-11.0)
[2020-07-11 06:49] LABS: BUN Creatinine Ratio 26.9 (6-22); Blood Urea Nitrogen 35 mg/dL (9-20); Calcium 7.8 mg/dL (8.4-10.2); Carbon Dioxide 24 mmol/L (22-32); Chloride 96 mmol/L (98-107); Estimated Glomerular Filt Rate 57.1 mL/min (>60); Glucose 124 mg/dL (70-100); HEMOLYSIS < 15 (0-50); Potassium 3.6 mmol/L (3.4-5.1); Sodium 127 mmol/L (137-145)
[2020-07-11] MEDS: diphenhydrAMINE 50 MG/ML VIAL 25 MG IV (06:51)
[2020-07-11 07:07] LABS: Procalcitonin 5.07 ng/mL (<0.5)
[2020-07-11] MEDS: levoFLOXacin 750 MG/150 ML PIGGYBACK 100 MG IV (08:25)
[2020-07-11] MEDS: ENOXAPARIN 40 MG/0.4 ML SYRINGE SUBCUT (08:25)
[2020-07-11] MEDS: NICOTINE 14 PATCH 14 MG TOP (08:25)
[2020-07-11] MEDS: ACETAMINOPHEN 325 MG TABLET 650 MG PO ×2 (08:25→18:22)
[2020-07-11] MEDS: SODIUM CHLORIDE 0.9% 1,000 ML 100 ML IV ×2 (10:31→21:40)
[2020-07-11 13:09] LABS: Osmolality, Serum 259 mOsmol/kg (275-295)
--- NOTE | 2020-07-11 13:12 | CM.DPC ---
DCP: continued: Dr. Light reported in Team Rounds that pt's pneumonia is now worsening. RN reports a new rash with blisters: front chest area and both sides of upper back. Full dx and POC does continue. DCPlanning team will continue to follow.
--- NOTE | 2020-07-11 14:31 | PC.NURSE ---
PATIENT OFF OF UNIT FOR CT SCAN
--- NOTE | 2020-07-11 14:46 | DI.CT.S_ITS ---
PROCEDURE: CT CHEST WO CON INDICATIONS: r/o abscess, empyema TECHNIQUE: Noncontrast 5 mm thick sections acquired from the pulmonary apices to the posterior costophrenic angles. 1 mm lung window, 5 mm thick coronal and sagittal and 7 mm axial MIP reformats were then acquired. For radiation dose reduction, the following was used: automated exposure control, adjustment of mA and/or kV according to patient size. COMPARISON: [facility], CT, CT ABDOMEN PELVIS W CON, 07/11/2020, 14:34. FINDINGS: Image quality: Excellent. Lungs and pleura: Ground-glass opacities with a crazy paving pattern is present within the right upper lobe. Similar pulmonary radiopacities are present within the right middle lobe. Ground-glass opacities are also present within the superior segment of the left lower lobe. The mid and inferior left lower lobe demonstrates dense consolidation with air bronchograms. There is a small low-density left pleural effusion. Mediastinum: Heart size is normal. No pericardial effusion. There are enlarged mediastinal and hilar lymph nodes. The largest pretracheal lymph node measures 1.2 cm in diameter.. Thoracic aorta and central pulmonary arteries are normal in size. Esophagus is normal in caliber. No hiatal hernia. Bones and chest wall: No suspicious bony lesions. No vertebral body compression fractures. No axillary or supraclavicular adenopathy by size criteria. Thyroid gland is unremarkable . Abdomen: Visualized upper abdominal solid organs and bowel loops appear normal in the absence of contrast. IMPRESSION: 1. Multifocal bilateral airspace opacities and dense consolidation of the left lower lobe as described above. Findings suggest multifocal pneumonia. If clinically indicated, findings may be associated with COVID-19 infection. 2. Small low-density left pleural effusion. 3. Absence of contrast limits evaluation for empyema or pulmonary abscess on the current study. However, on the postcontrast abdominal study from the same date, there is no enhancement within the limited visualization of the pleural effusion or evidence for abscess within the consolidated left lower lobe. Dictated by: Gisele Morgan M.D. on 07/11/2020 at 15:39 Approved by: Gisele Morgan M.D. on 07/11/2020 at 15:42
--- NOTE | 2020-07-11 14:46 | DI.CT.S_ITS ---
PROCEDURE: CT ABDOMEN PELVIS W CON INDICATIONS: abdominal pain TECHNIQUE: After the administration of oral and intravenous contrast, 5 mm thick sections acquired from the diaphragms to the symphysis. 5 mm thick coronal and sagittal reformats were performed. For radiation dose reduction, the following was used: automated exposure control, adjustment of mA and/or kV according to patient size. COMPARISON: [facility], CT, CT CHEST WO [facility], 07/11/2020, 14:34. FINDINGS: Image quality: Excellent. ABDOMEN: Lung bases: Dense consolidation is present within the mid and inferior left lower lobe. Air bronchograms are present centrally. The superior segment of the left lower lobe demonstrates ground-glass radiopacities. Trace airspace opacities are partially visualized within the right middle lobe. Heart is normal size. Solid organs: Liver is normal in size and enhancement. Gallbladder is unremarkable . Biliary system is non-dilated. Pancreas enhances normally. Spleen is normal in size and enhancement. No adrenal nodules. Kidneys are normal in size and enhancement, without hydronephrosis. Peritoneum and bowel: Stomach, small bowel, and colon loops are normal in caliber and wall thickness. The appendix is thin walled and gas filled. There are extensive sigmoid diverticula. No evidence for diverticulitis. There is trace low-density free fluid. Nodes and vessels: No retroperitoneal or mesenteric adenopathy. Aorta and inferior vena cava are normal in caliber. There are scattered atheromatous calcifications throughout the aorta and iliac arteries bilaterally. Miscellaneous: No ventral hernias. PELVIS: Genitourinary: Bladder wall thickness is normal. Miscellaneous: No inguinal hernias or adenopathy. Bones: No suspicious bony lesions. No vertebral body compression fractures. IMPRESSION: 1. Dense consolidation within the left lower lobe consistent with lobar pneumonia. Please see detailed description of the other pulmonary findings on the dedicated CT of the chest from the same date. Airspace opacities within the right lung raise the suspicion for multifocal pneumonia. 2. Small low-density left pleural effusion likely associated with pulmonary infection. 3. Normal appendix. Diverticulosis. No acute diverticulitis. Dictated by: Gisele Morgan M.D. on 07/11/2020 at 15:32 Approved by: Gisele Morgan M.D. on 07/11/2020 at 15:39
--- NOTE | 2020-07-11 15:31 | P.PN_ITS ---
Subjective Subjective Date Patient Seen: 07/11/20 Interval history: Patient is a 54-year-old male who was admitted to the hospital for bacterial pneumonia. Patient had more fever spikes last night with sweats and chills. He has been afebrile since this morning. Repeat chest x-ray showed bilateral consolidation. Hiccups have gone away after Thorazine. There was concern about a rash d eveloping on back and under his arms which has resolved and most likely was a fever rash. Exam Vital Signs (past 8 hours): - 07/11/20 08:00 07/11/20 08:06 07/11/20 11:35 Temperature 98.2 F 97.7 F Pulse Rate 78 77 Respiratory Rate 18 19 Blood Pressure 112/63 115/63 Pulse Oximetry 93 93 96 07/11/20 12:00 Temperature Pulse Rate Respiratory Rate Blood Pressure Pulse Oximetry 96 Oxygen Delivery Method Room Air Oxygen Flow Rate 0 Narrative Exam Narrative: General: Alert but appears tired and somewhat uncomfortable Lungs: Clear to auscultation Heart: Regular rhythm Abdomen: Soft and nontender Extremities: No edema Neurological: Sensorium intact, nonfocal Objective Labs Result Diagrams: 07/11/20 06:30 07/11/20 06:30 Labs: Laboratory Results - last 24 hr 07/09/20 07/11/20 07/11/20 05:32 06:30 06:30 WBC 9.3 RBC 3.97 L Hgb 11.7 L Hct 34.0 L MCV 85.8 MCH 29.5 MCHC 34.4 RDW 13.4 Plt Count 148 L Neut % (Auto) 86.4 H Lymph % (Auto) 6.1 L [place] % (Auto) 5.9 Eos % (Auto) 1.3 L Baso % (Auto) 0.3 Neut # (Auto) 8000 H Lymph # (Auto) 600 L [place] # (Auto) 500 Eos # (Auto) 100 Baso # (Auto) 0 Sodium Potassium Chloride Carbon Dioxide BUN Creatinine Estimated GFR BUN/Creatinine Ratio Glucose Serum Osmolality 259 L Calcium Procalcitonin 5.07 H 07/11/20 06:30 WBC RBC Hgb Hct MCV MCH MCHC RDW Plt Count Neut % (Auto) Lymph % (Auto) [place] % (Auto) Eos % (Auto) Baso % (Auto) Neut # (Auto) Lymph # (Auto) [place] # (Auto) Eos # (Auto) Baso # (Auto) Sodium 127 L Potassium 3.6 Chloride 96 L Carbon Dioxide 24 BUN 35 H Creatinine 1.30 H Estimated GFR 57.1 L BUN/Creatinine Ratio 26.9 H Glucose 124 H Serum Osmolality Calcium 7.8 L Procalcitonin Assessment & Plan Assessment & Plan narrative: 1. Bacterial pneumonia, present on admission, active -presented with fevers, chills, cough, left lung infiltrates, elevated procalcitonin, normal WBC, normal lactate, negative COVID-19 x2, not hypoxic -repeat chest x-ray with new infiltrate in RLL -continued fevers and prolactin not improving after 48 hours on Rocephin and Zithromax -O2 sat 92-96% on room air, most recent 96% -changed abx to Levaquin 750 IV daily, 1st dose am 07/11 -Tylenol and ibuprofen as needed -admission blood cultures negative and patient does not show any signs of sepsis -doubt chest CT will show anything more but ordered after speaking with patient's sister who would like him to have a CT 2. Acute dehydration, present on admission, active -admit sodium 125, BUN 25, creatinine 1.21, reported not eating or taking much fluids last few days prior to admit -received 1 L NS in the ED, provide additional 1 L NS 100 cc/hour -still hyponatremic and likely volume depleted, resumed NS 100 cc/hour on 07/10 -K 3.4, provide KCL 40 mEq p.o. on 07/10 -continue NS hydration as patient still likely dehydrated with elevated BUN to creatinine ratio, noting creatinine has increased slightly on today's labs 3. Thrombocytopenia, iron deficient anemia, present on admission, active -iron profile with % saturation of 9 consistent with chronic iron deficiency anemia, patient has not had a colonoscopy, patient has history of chronic epigastric pain -recommend outpatient colonoscopy and EGD -platelets improving -ordered abdomen and pelvis contrast CT after speaking with patient's sister to rule out intra-abdominal metastatic malignancy 4. Hyperglycemia, present on admission, active -serum glucose 129, likely stress hyperglycemia -hemoglobin A1c 5.5, normal 5. Nausea, vomiting and diarrhea, present on admission, resolved -diet as tolerated 6. Acute encephalopathy, present prior to admission, resolved -as noted patient was seeing things but currently without evidence of delirium, continue to monitor 7. Intractable hiccups, present on admission, resolving -secondary to lower lobe pneumonia -continue on Thorazine 25 mg t.i.d. as needed 8. Hyponatremia -likely volume depletion, patient with little p.o. intake prior to admission, elevated BUN to creatinine ratio -continue NS 100 cc/hour -non restricted diet -serum osmolalities pending but expected to be low in most forms of hyponatremia and at this point urine lytes and osmolarity will not be to helpful after saline hydration 9. Cigarette nicotine dependency, active -encouraged to quit smoking -nicotine patch as needed Updated patient's sister Rosette who is RN. Her contact number is [phone]. Patient requires continued inpatient stay for treatment of pneumonia. I do not see indication for transfer to tertiary care as patient does not require title officer Care, bronchoscopy, and we need at least another 48 hours to assess response to change in antibiotic.
[2020-07-11] MEDS: NYSTATIN SUSP 500,000 UNIT/5 ML UDC 500000 UNIT PO (21:40)
[2020-07-11] MEDS: MELATONIN 3 MG TABLET 6 MG PO (21:40)
[2020-07-12] VITALS (18 sets, daily range): BP systolic 126–156; BP diastolic 70–87; PULSE 78–96; RESP 17–28; TEMP 36.9–38.2; O2SAT 92–95
[2020-07-12] MEDS: ACETAMINOPHEN 325 MG TABLET 650 MG PO ×3 (06:04→21:23)
[2020-07-12] MEDS: KETOROLAC 30 MG/ML VIAL IV (06:04)
[2020-07-12] MEDS: levoFLOXacin 750 MG/150 ML PIGGYBACK 100 MG IV (06:05)
[2020-07-12 06:18] LABS: BUN Creatinine Ratio 25.2 (6-22); Blood Urea Nitrogen 29 mg/dL (9-20); Calcium 7.7 mg/dL (8.4-10.2); Carbon Dioxide 25 mmol/L (22-32); Chloride 100 mmol/L (98-107); Estimated Glomerular Filt Rate > 60.0 mL/min (>60); Glucose 105 mg/dL (70-100); HEMOLYSIS < 15 (0-50); Potassium 3.4 mmol/L (3.4-5.1); Sodium 131 mmol/L (137-145)
[2020-07-12 06:23] LABS: Add Manual Diff / Slide Review NO; Basophils Absolute Auto 0 /uL (0-100); Basophils Percent Auto 0.5 % (0-2); Eosinophils Absolute Auto 100 /uL (0-450); Eosinophils Percent Auto 1.7 % (2-4); Hematocrit 31.6 % (41-53); Hemoglobin 11.1 g/dL (13.5-17.5); Lymphocytes Absolute Auto 500 /uL (1100-4500); Lymphocytes Percent Auto 6.1 % (25-40); Mean Corpuscular HGB Conc 35.2 % (30-36); Mean Corpuscular Hemoglobin 33.3 PG (26-34); Mean Corpuscular Volume 94.8 fL (80-100); Monocytes Absolute Auto 600 /uL (0-900); Monocytes Percent Auto 7.2 % (3-14); Neutrophils Absolute Auto 7400 /uL (1500-7000); Neutrophils Percent Auto 84.5 % (50-75); Platelet Count 204 X10^3/uL (150-400); Red Blood Cell Count 3.34 X10^6/uL (4.5-5.9); Red Cell Distribution Width 13.4 % (11.6-14.8); White Blood Cell Count 8.8 X10^3/uL (4.5-11.0)
[2020-07-12 06:32] LABS: Procalcitonin 3.67 ng/mL (<0.5)
[2020-07-12] MEDS: diphenhydrAMINE 50 MG/ML VIAL 25 MG IV (07:01)
[2020-07-12] MEDS: SODIUM CHLORIDE 0.9% FLUSH 10 ML IV (07:01)
[2020-07-12] MEDS: SODIUM CHLORIDE 0.9% 1,000 ML 100 ML IV ×2 (08:28→19:11)
[2020-07-12] MEDS: ENOXAPARIN 40 MG/0.4 ML SYRINGE SUBCUT (08:28)
[2020-07-12] MEDS: NYSTATIN SUSP 500,000 UNIT/5 ML UDC 500000 UNIT PO ×4 (08:28→21:23)
[2020-07-12] MEDS: NICOTINE 14 PATCH 14 MG TOP (08:29)
--- NOTE | 2020-07-12 13:20 | CM.DPC ---
DCP Cont: Met with patient during team rounds. Dr. Lua assessed for rash, which has improved. Patient continues to have fever. Confirmed that he resides with his spouse, but has a sister that is an RN, that he has given Dr. Lua permission to contact for her questions. Plan is for home when stable, for patient is independent at baseline, but at this time, patient states he is continuing to not feel well. P: DCP to continue to follow and will be available for any resources needed. Carlie Prabhakar RN/Poultry Husbandry Worker
--- NOTE | 2020-07-12 13:27 | PC.NURSE ---
Addendum entered by Barbara Huitron R.N. 07/12/20 14:28: Tolerated first dose of IV Zosyn without s/sx adverse reaction. Resting quietly in bed at this time, denies needs. Agrees to call for SBA OOB, light and belongings within reach. Original Note: Rash: Patient developed rash (upper chest, back, inner/upper arms, erythema at IV site) during this morning's Levaquin dose. Rash largely gone now. This display card writer added Levaquin to patient's allergy list and put on hold on e-mar- informed Dr Lua at rounds, expect a new antibiotic to be ordered today.
[2020-07-12] MEDS: PIPERACILLIN-TAZO 3.375 GM/50 ML FROZ.PIGGY IV ×2 (13:44→21:23)
[2020-07-12] MEDS: chlorproMAZINE 25 MG TABLET PO (13:45)
--- NOTE | 2020-07-12 15:19 | PM.PN.1 ---
Subjective Subjective Date Patient Seen: 07/12/20 Interval history: The patient is a 54 y/o male admitted to the hospital for bilateral multifocal pneumonia. He continues to have fever. Patient developed a rash during the infusion of levofloxacin which was discontinued. He reports hiccups have resolved. He is not hypoxic but is making slow progress Exam Vital Signs (past 8 hours): - 07/12/20 08:35 07/12/20 08:50 07/12/20 09:18 Temperature 98.6 F Pulse Rate 81 Respiratory Rate 17 Blood Pressure 126/70 Pulse Oximetry 95 94 07/12/20 11:11 07/12/20 13:40 07/12/20 13:44 Temperature 98.5 F 100.5 F H 100.5 F H Pulse Rate 89 Respiratory Rate 18 Blood Pressure 156/87 H Pulse Oximetry 95 Oxygen Delivery Method Room Air Oxygen Flow Rate 0 Narrative Exam Narrative: ill appearing male Lungs: decreased breath sounds with scattered crackles at the bases bilaterally CV: RRR nl Sl S2 Abd: Soft/ non tender/ non distended Ext: no edema Objective Labs Result Diagrams: 07/12/20 05:35 07/12/20 05:35 Labs: Laboratory Results - last 24 hr 07/12/20 07/12/20 07/12/20 05:35 05:35 05:35 WBC 8.8 RBC 3.34 L Hgb 11.1 L Hct 31.6 L MCV 94.8 D MCH 33.3 MCHC 35.2 RDW 13.4 Plt Count 204 Neut % (Auto) 84.5 H Lymph % (Auto) 6.1 L [place] % (Auto) 7.2 Eos % (Auto) 1.7 L Baso % (Auto) 0.5 Neut # (Auto) 7400 H Lymph # (Auto) 500 L [place] # (Auto) 600 Eos # (Auto) 100 Baso # (Auto) 0 Sodium 131 L Potassium 3.4 Chloride 100 Carbon Dioxide 25 BUN 29 H Creatinine 1.15 Estimated GFR > 60.0 BUN/Creatinine Ratio 25.2 H Glucose 105 H Calcium 7.7 L Procalcitonin 3.67 H Assessment & Plan Assessment & Plan narrative: Bacterial pneumonia, present on admission, active -CT Chest confirms multifocal pneumonia -patient with dense consolidation of left lower lobe but no evidence of empymena or mucus plugging -rash with Levofloxacin -Now on Zosyn -Will continue to moinitor fever curve 2. Acute dehydration, present on admission, active -admit sodium 125, BUN 25, creatinine 1.21, reported not eating or taking much fluids last few days prior to admit -received 1 L NS in the ED, provide additional 1 L NS 100 cc/hour -still hyponatremic and likely volume depleted, resumed NS 100 cc/hour on 07/10 -K 3.4, provide KCL 40 mEq p.o. on 07/10 -continue NS hydration as patient still likely dehydrated with elevated BUN to creatinine ratio, noting creatinine has increased slightly on today's labs -improving, will continue IV hydration, check lytes in am with plans to d/c tomorrow 3. Thrombocytopenia, iron deficient anemia, present on admission, active -iron profile with % saturation of 9 consistent with chronic iron deficiency anemia, patient has not had a colonoscopy, patient has history of chronic epigastric pain -recommend outpatient colonoscopy and EGD -platelets improving - 4. Hyperglycemia, present on admission, active -serum glucose 129, likely stress hyperglycemia -hemoglobin A1c 5.5, normal 5. Nausea, vomiting and diarrhea, present on admission, resolved -diet as tolerated 6. Acute encephalopathy, present prior to admission, resolved -as noted patient was seeing things but currently without evidence of delirium, continue to monitor 7. Intractable hiccups, present on admission, resolving -secondary to lower lobe pneumonia -continue on Thorazine 25 mg t.i.d. as needed -improved 8. Hyponatremia -likely volume depletion, patient with little p.o. intake prior to admission, elevated BUN to creatinine ratio -continue NS 100 cc/hour -non restricted diet -serum osmolalities pending but expected to be low in most forms of hyponatremia and at this point urine lytes and osmolarity will not be to helpful after saline hydration -improving, serum sodium 131 today 9. Cigarette nicotine dependency, active -encouraged to quit smoking -nicotine patch as needed
--- NOTE | 2020-07-12 22:49 | PC.NURSE ---
cont pulse ox 95% RA. delirium at the beginning of the shift. notified . pt was febrile 100.8, tylenol, recheck temp 99F. RR 27, 94% RA. notified physician regarding pt's RR. pt comfortable in bed. denied pain. bed alarm active. call light in reach.
[2020-07-13] VITALS (8 sets, daily range): BP systolic 145–156; BP diastolic 76–90; PULSE 68–85; RESP 17–26; TEMP 37.1–37.7; O2SAT 93–97
[2020-07-13] MEDS: PIPERACILLIN-TAZO 3.375 GM/50 ML FROZ.PIGGY IV ×2 (06:00→13:13)
[2020-07-13] MEDS: SODIUM CHLORIDE 0.9% 1,000 ML 100 ML IV (06:10)
[2020-07-13 06:57] LABS: BUN Creatinine Ratio 20.7 (6-22); Blood Urea Nitrogen 19 mg/dL (9-20); Calcium 7.7 mg/dL (8.4-10.2); Carbon Dioxide 22 mmol/L (22-32); Chloride 105 mmol/L (98-107); Estimated Glomerular Filt Rate > 60.0 mL/min (>60); Glucose 109 mg/dL (70-100); HEMOLYSIS < 15 (0-50); Potassium 3.4 mmol/L (3.4-5.1); Sodium 133 mmol/L (137-145)
[2020-07-13] MEDS: NICOTINE 14 PATCH 14 MG TOP (08:33)
[2020-07-13] MEDS: ACETAMINOPHEN 325 MG TABLET 650 MG PO (08:33)
[2020-07-13] MEDS: NYSTATIN SUSP 500,000 UNIT/5 ML UDC 500000 UNIT PO ×2 (08:33→12:42)
[2020-07-13] MEDS: ENOXAPARIN 40 MG/0.4 ML SYRINGE SUBCUT (08:33)
--- NOTE | 2020-07-13 12:08 | CM.DPC ---
DCP Cont: Met with patient in his room, for it is noted that he does not have a primary care provider. Gave him the phone number of [facility], and let him know that they are currently seeing new patients, they have ARNPs that are accepting, as well as DOs. He confirmed, he has been pretty healthy, so he did not recently get established with anyone. He is currently employed at [employer], and has insurance through them. P: DCP to continue to follow. He is most likely to discharge home tomorrow. He will need to get established with a new provider. Carlie Prabhakar RN/Edging Supervisor
--- NOTE | 2020-07-13 12:45 | P.DS_ITS ---
History of Present Illness History of Present Illness Date Patient Seen: 07/13/20 Chief complaint: COVID, DIFFICULTY BREATHING Narrative: Patient is a 54-year-old male smoker who presented to the emergency department with complaints of fevers, chills, sweats and shortness of breath for the previous 4-5 days. He 1st became ill on TuesdayJuly 04 when developed severe fatigue, chills and sweats, and dry cough. He was concerned about COVID and isolated himself in the garage and contacted his workplace. He got tested on July 06 at the walk-in clinic which subsequently came back negative for COVID-19. His symptoms have worsened over the past 4-5 days prompting him to come to the ER for evaluation. His temp was 100.1? with otherwise normal vitals. On room air blood gas his PO2 is 72. His sodium was 125, BUN 25 and creatinine 1.21. His glucose was 129. He has not eaten much in the past few days. He has also had some nausea, vomiting and diarrhea. His WBC was 9.1 with left shift, hemoglobin 12.2, hematocrit 35.3, platelets 123. Procalcitonin 1.18. Normal lactate level of 1.2. Chest x-ray showed infiltrate at left lung base and inferior left lobe. Additionally he has had intractable hiccups the last day. And he reports some symptoms of delirium with seeing things while isolated in the garage. Patient smokes less than 1 pack per day with 43 year smoking history. No EtOH. Family history unremarkable for cancers, CAD or diabetes. He works at [employer]. Discharge Providers Provider Date of admission: 07/08/20 12:40 Discharge Date: 07/13/20 Discharge provider: Margy Lua MD Summary Hospital Course Discharge Diagnosis: 1. Multifocal pneumonia, present on admission 2. hyponatremia 3. hypokalemia 4. tobacco dependent, patient counseled to discontinue 5. acute metabolic encephalopathy, present on admission, resolved 6. nausea vomiting dehydration, resolved 7. probable hypertension outpatient follow-up for further recommendations and treatment Hospital Course: patient was admitted to the hospital for community-acquired pneumonia. Was found to have a left lower lobe infiltrate on admission. Patient was not hypoxic. However he continued to have significant fevers. He was initially treated with ceftriaxone and Zithromax in. Patient developed a rash in was switched to levofloxacin. With an infusion of the levofloxacin the patient again did and this time was switched over to IV Zosyn. His fevers improved. . He did have low-grade fever 100 today. However the patient had no shortness of been feeling improved. He had significant hiccups which improved with Thorazine P patient was found to be hyponatremic which was felt to be due to dehydration. Improved with IV saline. Patient underwent CT scanning of the chest abdomen and pelvis. Abdominal CT was unremarkable. Chest CT confirmed a dense left lower lobe consolidation with associated bilateral opacities in the lung. Patient had improvement of his nausea vomiting and hiccup he did have some episodes of confusion at the time of admission felt to be metabolic encephalopathy. He was counseled regarding smoking cessation during the hospital stay. Patient was deemed appropriate for discharge and discharged home accordingly. He was given referral to an outpatient primary care provider Status at Discharge Cognitive/behavioral status at discharge: oriented Functional status at discharge: independent ambulation Overall status at discharge: patient is not back to baseline Time Spent with Patient Time spent: Less than 30 minutes Time spent discussing smoking cessation with patient: 3 to 10 minutes Exam Vital Signs (past 8 hours): - 07/13/20 05:00 07/13/20 05:40 07/13/20 07:40 Temperature 99.1 F 100 F H Pulse Rate 85 81 Respiratory Rate 26 H 22 Blood Pressure 151/83 H 145/78 H Pulse Oximetry 96 95 93 07/13/20 09:00 Temperature Pulse Rate Respiratory Rate Blood Pressure Pulse Oximetry 93 Oxygen Delivery Method Room Air Oxygen Flow Rate 0 Narrative Exam Narrative: pleasant gentleman in no obvious distress lungs: Clear to auscultation with occasional basilar crackles cardiac exam regular rate and rhythm normal S1 Nl S2 abdomen: Soft nontender nondistended extremity no edema Objective Labs Result Diagrams: 07/12/20 05:35 07/13/20 06:05 Labs: Laboratory Results - last 24 hr 07/13/20 06:05 Sodium 133 L Potassium 3.4 Chloride 105 Carbon Dioxide 22 BUN 19 Creatinine 0.92 Estimated GFR > 60.0 BUN/Creatinine Ratio 20.7 Glucose 109 H Calcium 7.7 L Discharge Assessment & Plan Assessment and Plan Assessment: 1. Multifocal pneumonia 2. tobacco dependence, patient counseled to quit 3. hyponatremia, resolved 4. acute metabolic encephalopathy, resolved 5. nausea vomiting dehydration, resolved 6. probable hypertension Plan of Treatment: 1. Augmentin 875 twice daily for 7 days 2. new patient appointment with primary to evaluate hypertension and follow-up of pneumonia Discharge Plan Discharge Plan Patient Disposition: Home Discharge orders & Medications Prescriptions: New amoxicillin-pot clavulanate [Augmentin] 875-125 mg tablet 1 tab PO BID Qty: 14 RF: 0 chlorpromazine 25 mg Tablet 25 mg PO TID PRN (Reason: hiccpus) Qty: 7 RF: 0 Continued hydrocodone-acetaminophen 5-325 mg tablet 1 tab PO Q4-6H PRN (Reason: breakthrough pain) Qty: 20 RF: 0 mupirocin 2 % ointment 1 applictn TOP TID Qty: 15 RF: 0 Discharge Health Status Multidrug resistant organism: No MDRO Diet/Activity/Treatments Diet: Diet as Tolerated and Low-sodium Activity: as tolerated Visit Report/Discharge Packet Instructions: Piperacillin and Tazobactam Injection
[2020-07-13] MEDS: CALCIUM GLUCONATE 4.65 MEQ in SODIUM CHLORIDE 0.9% 50 ML 180 ML IV (13:55)
--- NOTE | 2020-07-13 16:10 | PC.NURSE ---
pt dc'd. discharge teaching provided. Dr. Lua ok with patient driving home, but patient decided for to pick him up. pt refused wheelchair. escorted by OVENS SUPERVISOR to ED exit.
[2020-07-14 14:37] LABS: SARS-CoV19- IgM Negative (Negative)
== END 2020-07-13 16:08 | disposition home or self-care (01) | DRG 193 ==
LOC: ED 12:36 → AC 14:29
PROVIDERS: Internal Medicine; Nurse Practitioner Family; Admitting Provider Internal Medicine; Emergency Provider Emergency Medicine; Visit Provider Internal Medicine
DX: J15.9 Unspecified bacterial pneumonia (principal); G93.41 Metabolic encephalopathy; E87.1 Hypo-osmolality and hyponatremia; D69.6 Thrombocytopenia, unspecified; E86.0 Dehydration; R06.6 Hiccough; F17.210 Nicotine dependence, cigarettes, uncomplicated; E87.6 Hypokalemia; I10 Essential (primary) hypertension; L27.0 Generalized skin eruption due to drugs and medicaments taken internally; T36.8X5A Adverse effect of other systemic antibiotics, initial encounter; Y92.230 Patient room in hospital as the place of occurrence of the external cause; Z03.818 Encounter for observation for suspected exposure to other biological agents ruled out
CPT/HCPCS: 36415; 36592; 36600; 71045; 71250; 74177; 80048; 80053; 82728; 82805; 83036; 83540; 83550; 83605; 83930; 84145; 85025; 86769; 87040; 87635; 94640; 96361; 96365; 96366; 96368; 96375; 99284; C9113; J0610; J0696; J1200; J1650; J1885; J1956; J2405; J2543; J7050; Q9967

== ENCOUNTER → 2020-07-24 19:40 | Outpatient (ROUT) | payer OTHER, SELFPAY ==
[2020-07-09 19:51] VITALS: BMI 24.2
[2020-07-24 20:25] LABS: Add Manual Diff / Slide Review NO; Basophils Absolute Auto 200 /uL (0-100); Eosinophils Absolute Auto 100 /uL (0-450); Eosinophils Percent Auto 1.8 % (2-4); Hemoglobin 12.1 g/dL (13.5-17.5); Lymphocytes Absolute Auto 2200 /uL (1100-4500); Lymphocytes Percent Auto 33.8 % (25-40); Mean Corpuscular HGB Conc 32.9 % (30-36); Mean Corpuscular Hemoglobin 29.8 PG (26-34); Mean Corpuscular Volume 90.7 fL (80-100); Monocytes Absolute Auto 800 /uL (0-900); Monocytes Percent Auto 12.3 % (3-14); Neutrophils Absolute Auto 3300 /uL (1500-7000); Neutrophils Percent Auto 49.1 % (50-75); Platelet Count 431 X10^3/uL (150-400); Red Blood Cell Count 4.07 X10^6/uL (4.5-5.9); Red Cell Distribution Width 14.4 % (11.6-14.8); White Blood Cell Count 6.6 X10^3/uL (4.5-11.0)
[2020-07-24 20:26] LABS: Blood Urea Nitrogen 19 mg/dL (9-20); Calcium 9.8 mg/dL (8.4-10.2); Carbon Dioxide 25 mmol/L (22-32); Chloride 103 mmol/L (98-107); Estimated Glomerular Filt Rate > 60.0 mL/min (>60); Glucose 104 mg/dL (70-100); HEMOLYSIS < 15 (0-50); Potassium 4.1 mmol/L (3.4-5.1); Sodium 138 mmol/L (137-145)
== END ==
PROVIDERS: Visit Provider Internal Medicine
DX: J18.9 Pneumonia, unspecified organism (principal); D64.9 Anemia, unspecified
CPT/HCPCS: 80048; 85025

== ENCOUNTER → 2021-03-04 08:13 | Outpatient (CLI) | payer OTHER, SELFPAY ==
[2020-07-09 19:51] VITALS: BMI 24.2
[2021-03-04] MEDS: COVID-19 VACC #1, MRNA(MOD) 100 MCG/0.5 ML VIAL IM (08:21)
== END ==
PROVIDERS: Visit Provider Internal Medicine
DX: Z23 Encounter for immunization (principal)
CPT/HCPCS: 0011A; 91301

== ENCOUNTER → 2021-04-01 08:08 | Outpatient (CLI) | payer OTHER, SELFPAY ==
[2020-07-09 19:51] VITALS: BMI 24.2
[2021-04-01] MEDS: COVID-19 VACC #2, MRNA(MOD) 100 MCG/0.5 ML VIAL IM (08:12)
== END ==
PROVIDERS: Visit Provider Internal Medicine
DX: Z23 Encounter for immunization (principal)
CPT/HCPCS: 0012A; 91301

== ENCOUNTER 2023-05-27 20:12 | Emergency (ER) | payer OTHER, SELFPAY ==
[2020-07-09 19:51] VITALS: BMI 24.2
--- NOTE | 2023-05-27 20:33 | DI.US.S_ITS ---
PROCEDURE: US PERIPH VENOUS LOW EXTREM RT INDICATIONS: CALF PAIN TECHNIQUE: Real-time imaging, as well as color and pulse Doppler interrogation, were performed of the lower extremity deep veins from the inguinal ligament to the popliteal fossa. COMPARISON: None. FINDINGS: The common femoral, femoral and popliteal veins are normally compressible, and free of intraluminal thrombus. Color and pulse Doppler demonstrate normal phasic intraluminal flow. There is normal augmentation response to distal compression maneuver. Edema is present within the subcutaneous IMPRESSION: No deep venous thrombosis. Dictated by: Margoth Graham M.D. on 05/27/2023 at 21:57 Approved by: Margoth Graham M.D. on 05/27/2023 at 21:58
[2023-05-27 20:34] VITALS: BP 147/82; PULSE 80; RESP 16; TEMP 36.6; O2SAT 99; BMI 25.0
--- NOTE | 2023-05-27 22:22 | ED.EXTPRO ---
HPI - Extremity Problem General Chief complaint: Extremity Problem,Nontraumatic Stated complaint: Calf pain Time Seen by Provider: 05/27/23 20:47 Source: patient Mode of arrival: Ambulatory History of Present Illness HPI Narrative: 57-year-old male daily smoker without significant medical history presents for evaluation small tender spot on the posterior aspect of his right calf. He denies any injury. He denies redness or warmth. He denies any fever or chills. He denies any known injury recently but states about 1 week ago he was out hiking and stepped awkwardly and felt a pulling sensation in his posterior calf. He denies any recent travel or history of blood clot. He denies chest pain or shortness of breath. He states his pain is worse when he attempts to stretch it and improves with rest. He is most concerned about the potential of a DVT Related Data Home Medications Medication Instructions Recorded Confirmed No Known Home Medications 05/27/23 05/27/23 Allergies Allergy/AdvReac Type Severity Reaction Status Date / Time levofloxacin [From Levaquin] Allergy Severe Rash Verified 05/27/23 20:37 Review of Systems Review of Systems Narrative: GENERAL: Denies chills, fatigue, malaise, fever, sweats. HEENT: Denies sinus pain, ear pain, sore throat, difficulty swallowing, dizziness. RESPIRATORY: Denies dyspnea, cough, wheezing, hemoptysis, sputum. CARDIOVASCULAR: Denies chest pain, palpitations, orthopnea, edema, GASTROINTESTINAL: Denies nausea, vomiting, abdominal pain, diarrhea, constipation, melena. : Denies dysuria, frequency, incontinence, hematuria, urinary retention. MUSCULOSKELETAL: See HPI SKIN: Denies rash, skin lesions, or other NEUROLOGIC: Denies weakness, headache, numbness, change in speech, confusion, seizures, incoordination. PSYCHIATRIC: No concerning psychosocial issues. 12 point review of systems is negative except for those stated above Patient History Social History household members: spouse Smoking Status: Current every day smoker Smoking Status: Current every day smoker alcohol intake frequency: holidays/special occasions only Substance Use Type: marijuana Exam Narrative Exam Narrative: GEN: AOx3 and in mild distress EYES: Pupils are equal, round, and reactive to light and accommodation. Extraoccular muscles are intact bilaterally. There is no subconjunctival hemorrhage or exudate. CHEST: Lungs are clear to auscultation bilaterally and free of wheezes, rales, or rhonchi. Heart rate is regular rhythm, there are no murmurs, clicks, rubs, or gallops. There is no chest wall tenderness. ABD: Abdomen is soft and nontender. There is no guarding or rebound. Bowel sounds are normal in all 4 quadrants. There is no mass or organomegaly. EXT: Right posterior calf with a small, quarter-size area of tenderness to palpation, no other swelling, erythema or warmth, negative calf squeeze SKIN: Warm, pink, and dry. No erythema or rash Initial Vital Signs Initial Vital Signs: Vital Signs Temperature 98 F 05/27/23 20:34 Pulse Rate 80 05/27/23 20:34 Respiratory Rate 16 05/27/23 20:34 Blood Pressure 147/82 H 05/27/23 20:34 Pulse Oximetry 99 05/27/23 20:34 Oxygen Delivery Method Room Air 05/27/23 20:34 Course Orders Ordered: ED Orders 05/27/23 20:33 US periph venous low extrem rt Stat Vital Signs Vital signs: Vital Signs - 8 hr 05/27/23 20:34 05/27/23 22:44 Temperature 98 F Pulse Rate 80 71 Respiratory Rate 16 17 Blood Pressure 147/82 H 135/80 Pulse Oximetry 99 98 Oxygen Delivery Method Room Air Room Air MDM - Extremity (Nontraumatic) MDM Narrative Medical decision making narrative: [57] year old patient presents with Multiple etiologies for patient's symptoms considered including, but not limited to: [DVT versus cellulitis versus musculoskeletal versus other] Prior Charts reviewed in our EMR Primary Historian: patient Imaging reviewed: Ultrasound demonstrates no evidence Patient's history and physical exam are reassuring. Very minimal swelling, pinpoint tenderness to palpation. No surrounding erythema, warmth or induration, no lymphangitis. Cellulitis fall very unlikely. Ultrasound demonstrates no evidence of clot. Findings and discharge diagnosis discussed with patient/family followed by verbalization of understanding Return precautions discussed with patient/family whom verbalize understanding of diagnosis and plan Discharge Plan Departure Patient Disposition: Home Clinical Impression: Pain of right calf Instructions: DI for Leg Pain Activity Restrictions/Additional Instructions: *You have been diagnosed with [Right calf pain. As we discussed the ultrasound is negative for DVT and clinically do not appear to have any signs of infection or other significant diagnosis that would require a specific or immediate intervention] *What to do: *Please continue to take your regular medications as directed. [ ] New medication prescriptions sent to your pharmacy: [ ] [ ] New medication written as a paper prescription [ ] No new medications given *Please follow up with your primary care provider in 2-3 days, call for an appointment. Let them know you were seen in the Emergency Department and that we ask that you be seen in follow up. We will electronically transmit a record of today's note if your PCP is in our system *Return to Emergency Department if you should have any new, worsening or concerning symptoms, such as [fever greater than 101 F, shaking chills, worsening pain, persistent vomiting or other bothersome symptoms] Prescriptions: No Action No Known Home Medications Referrals: Miscellaneous,Doctor, MD [Primary Care Provider] - Stand Alone Forms: Patient Portal/API
[2023-05-27 22:44] VITALS: BP 135/80; PULSE 71; RESP 17; O2SAT 98
== END 2023-05-27 22:45 | disposition home or self-care (01) ==
PROVIDERS: Emergency Provider Emergency Medicine
DX: M79.661 Pain in right lower leg (principal)
CPT/HCPCS: 93971; 99281; 99282

== ENCOUNTER 2023-12-22 12:17 | Observation (INO) | payer OTHER, SELFPAY ==
[2020-07-09 19:51] VITALS: BMI 24.2
[2023-12-22] VITALS (9 sets, daily range): BP systolic 120–143; BP diastolic 62–83; PULSE 62–89; RESP 16–18; TEMP 36.2–36.6; O2SAT 94–100; BMI 25.1
[2023-12-22 12:55] LABS: Add Manual Diff / Slide Review NO; Basophils Absolute Auto 0 /uL (0-100); Basophils Percent Auto 0.6 % (0-2); Eosinophils Absolute Auto 0 /uL (0-450); Eosinophils Percent Auto 0.7 % (2-4); Hematocrit 43.7 % (41-53); Lymphocytes Absolute Auto 2000 /uL (1100-4500); Lymphocytes Percent Auto 27.9 % (25-40); Mean Corpuscular HGB Conc 34.3 % (30-36); Mean Corpuscular Volume 87.3 fL (80-100); Monocytes Absolute Auto 900 /uL (0-900); Monocytes Percent Auto 12.1 % (3-14); Neutrophils Absolute Auto 4200 /uL (1500-7000); Neutrophils Percent Auto 58.7 % (50-75); Platelet Count 214 X10^3/uL (150-400); Red Cell Distribution Width 13.8 % (11.6-14.8); White Blood Cell Count 7.1 X10^3/uL (4.5-11.0)
[2023-12-22 12:58] LABS: Urine Volume 10mL (spun)
[2023-12-22 13:15] LABS: Alanine Aminotransferase 261 IU/L (<50); Albumin 4.6 g/dL (3.5-5.0); Albumin Globulin Ratio 1.4 (1.0-2.8); Alkaline Phosphatase 101 U/L (38-126); Aspartate Aminotransferase 266 IU/L (17-59); BUN Creatinine Ratio 14.8 (6-22); Bilirubin Total 2.1 mg/dL (0.2-1.3); Blood Urea Nitrogen 12 mg/dL (9-20); Calcium 9.6 mg/dL (8.4-10.2); Carbon Dioxide 26 mmol/L (22-32); Chloride 105 mmol/L (98-107); Estimated Glomerular Filt Rate > 60 mL/min (>60); Globulin 3.3 g/dL (1.7-4.1); Glucose 95 mg/dL (80-110); HEMOLYSIS < 15 (0-50); Lipase 219 U/L (23-300); Sodium 137 mmol/L (137-145); Total Protein 7.9 g/dL (6.3-8.2)
[2023-12-22 13:20] LABS: Bacteria Urine None Seen; Culture Indicated Urine Cult Not Indicated; Mucus Urine 1+ (Negative); RBC Urine 1-5/HPF (0-5/HPF); Squamous Epithelial Cell Urine 1-5 /HPF (0-5/HPF); WBC Urine None Seen (0-5/HPF)
--- NOTE | 2023-12-22 14:08 | DI.US.S_ITS ---
PROCEDURE: US ABDOMEN LIMITED INDICATIONS: ruq pain TECHNIQUE: Real-time focused scanning was performed of the abdomen, with image documentation. COMPARISON: None. FINDINGS: Findings support a clinical diagnosis of acute cholecystitis. There are numerous mobile gallstones. There is gallbladder wall thickening and mild gallbladder wall edema. There is minimal fluid around the gallbladder. There is pain on examination. There are no dilated ducts. Common bile duct measures 5.8 mm. Visualized portions of the liver demonstrate increased echogenicity consistent with fatty change. No focal liver mass. Visualized portions the pancreas are unremarkable. IMPRESSION: 1. Constellation of findings would support a clinical diagnosis of acute cholecystitis. 2. Diffuse hepatic steatosis. Dictated by: Andrey Aguila M.D. on 12/22/2023 at 15:18 Approved by: Andrey Aguila M.D. on 12/22/2023 at 15:19
[2023-12-22] MEDS: KETOROLAC 30 MG/ML VIAL 15 MG IV (14:26)
--- NOTE | 2023-12-22 15:22 | ED.ABDPAIN ---
HPI - Abdominal Pain General Chief Complaint: Abdominal Pain Stated Complaint: poss gallbladder, upper abd/back pain Time Seen by Provider: 12/22/23 14:08 Source: patient Mode of arrival: Ambulatory History of Present Illness HPI narrative: Patient is a 58-year-old healthy male who presents today with ongoing right upper quadrant pain. He has been found for about a week worse over the last 2 days. He feels nauseous but no actual vomiting. Right upper quadrant pain goes through to the back. Use up to his shoulder. No real chest pain or shortness of breath. He has not had any fever but slightly chilled. Related Data Home Medications Medication Instructions Recorded Confirmed multivit with minerals-iron 18 1 tab PO DAILY 12/22/23 12/22/23 mg-folic ac 400 mcg-vit K 25 mcg tablet (Adults Multivitamin) Allergies Allergy/AdvReac Type Severity Reaction Status Date / Time levofloxacin [From Levaquin] Allergy Severe Rash Verified 05/27/23 20:37 Patient History Social History household members: spouse Smoking Status: Current every day smoker Smoking Status: Current every day smoker tobacco type: cigarettes alcohol intake frequency: holidays/special occasions only Substance Use Type: marijuana Exam Initial Vital Signs Initial Vital Signs: Vital Signs Temperature 97.8 F 12/22/23 12:27 Pulse Rate 89 12/22/23 12:27 Respiratory Rate 18 12/22/23 12:27 Blood Pressure 132/75 12/22/23 12:27 Pulse Oximetry 98 12/22/23 12:27 Oxygen Delivery Method Room Air 12/22/23 12:27 GENERAL: Alert pleasant 58-year-old male HEENT: Head atraumatic,EOMI, pupils reactive, face symmetric, moist mucous membranes CARDIOVASCULAR: Regular rate and rhythm without murmurs, rubs or gallops. RESPIRATORY: Breath sounds equal bilaterally, no wheezes rales or rhonchi. ABDOMEN: Soft mild tender right upper quadrant negative Decker sign no guarding no rebound : No CVA tenderness EXTREMITIES: Normal range of motion, no clubbing or edema. Neurovascularly intact NEUROLOGICAL: Alert and oriented x4. SKIN: Warm, dry, no laceration, no petechiae, no rashes or lesions. Course Orders Ordered: ED Orders 12/22/23 12:30 Urine Microscopic Stat 12/22/23 12:45 Complete Blood Count AUTO DIFF Stat Comprehensive Metabolic Panel Stat Lipase Stat 12/22/23 14:08 US abdomen limited Stat 12/22/23 15:09 EKG-12 Lead Stat 12/22/23 15:33 Education, smoking cessation ONGOING Acetaminophen (Acetaminophen 325 Mg Tablet) 650 mg PO Q6H PRN PRN Reason: Fever/Mild Pain (1-3) Hydromorphone HCl (Hydromorphone 0.5 Mg Inj) 0.5 mg IV Q2H PRN PRN Reason: Pain, Severe (7-10) Dextrose/Sodium Chloride (Dextrose 5%-0.45% Ns) 1,000 mls @ 100 mls/hr IV CONT PARVEZ Last Admin: 12/22/23 16:31 Dose: 100 mls/hr Documented By: GENOVEVA Piperacillin Sod/Tazobactam (Sod 3.375 gm/ Sodium Chloride) 100 mls @ 25 mls/hr IV Q8H PARVEZ Ibuprofen (Ibuprofen 600 Mg Tablet) 600 mg PO Q6H PRN PRN Reason: Fever/Mild Pain (1-3) Naloxone HCl (Naloxone 0.4 Mg/Ml Vial) 0.2 mg IV Q2MIN PRN PRN Reason: Opiate Reversal Ondansetron HCl (Ondansetron 4 Mg/2 Ml Inj) 4 mg IV NOW PRN PRN Reason: Nausea And Vomiting Ondansetron HCl (Ondansetron 4 Mg Odt) 4 mg PO NOW PRN PRN Reason: Nausea And Vomiting Oxycodone HCl (Oxycodone Ir 5 Mg Tablet) 5 mg PO Q3H PRN PRN Reason: Pain, Moderate (4-6) Discontinued Medications Piperacillin Sod/Tazobactam (Sod 4.5 gm/ Sodium Chloride) 100 mls @ 200 mls/hr IV NOW ONE Stop: 12/22/23 15:24 Last Admin: 12/22/23 15:37 Dose: 200 mls/hr Documented By: Ketorolac Tromethamine (Ketorolac 30 Mg/Ml Vial) 15 mg IV NOW ONE Stop: 12/22/23 14:09 Last Admin: 12/22/23 14:26 Dose: 15 mg Documented By: KB Vital Signs Vital signs: Vital Signs - 8 hr 12/22/23 12:27 12/22/23 13:50 12/22/23 13:50 Temperature 97.8 F Pulse Rate 89 73 Respiratory Rate 18 Blood Pressure 132/75 143/62 H Pulse Oximetry 98 96 Oxygen Delivery Method Room Air 12/22/23 14:00 12/22/23 14:00 12/22/23 14:30 Temperature Pulse Rate 71 70 Respiratory Rate Blood Pressure 135/73 Pulse Oximetry 96 96 Oxygen Delivery Method 12/22/23 14:30 12/22/23 15:00 12/22/23 15:00 Temperature Pulse Rate 62 Respiratory Rate Blood Pressure 130/83 133/74 Pulse Oximetry 95 Oxygen Delivery Method 12/22/23 15:30 12/22/23 15:30 Temperature Pulse Rate 64 Respiratory Rate Blood Pressure 125/77 Pulse Oximetry 95 Oxygen Delivery Method MDM - Abdominal Pain Lab Data 12/22/23 12:45 12/22/23 12:45 Labs: Lab Results 12/22/23 12/22/23 Range/Units 12:30 12:45 WBC 7.1 (4.5-11.0) X10^3/uL RBC 5.00 (4.5-5.9) X10^6/uL Hgb 15.0 (13.5-17.5) g/dL Hct 43.7 (41-53) % MCV 87.3 (80-100) fL MCH 30.0 (26-34) PG MCHC 34.3 (30-36) % RDW 13.8 (11.6-14.8) % Plt Count 214 (150-400) X10^3/uL Neut % (Auto) 58.7 (50-75) % Lymph % (Auto) 27.9 (25-40) % [place] % (Auto) 12.1 (3-14) % Eos % (Auto) 0.7 L (2-4) % Baso % (Auto) 0.6 (0-2) % Neut # (Auto) 4200 (7471-3412) /uL Lymph # (Auto) 2000 (2295-4254) /uL [place] # (Auto) 900 (0-900) /uL Eos # (Auto) 0 (0-450) /uL Baso # (Auto) 0 (0-100) /uL Sodium 137 (137-145) mmol/L Potassium 4.0 (3.4-5.1) mmol/L Chloride 105 (98-107) mmol/L Carbon Dioxide 26 (22-32) mmol/L BUN 12 (9-20) mg/dL Creatinine 0.81 (0.66-1.25) mg/dL Estimated GFR > 60 (>60) mL/min BUN/Creatinine Ratio 14.8 (6-22) Glucose 95 (80-110) mg/dL Calcium 9.6 (8.4-10.2) mg/dL Total Bilirubin 2.1 H (0.2-1.3) mg/dL AST 266 H (17-59) IU/L ALT 261 H (<50) IU/L Alkaline Phosphatase 101 (38-126) U/L Total Protein 7.9 (6.3-8.2) g/dL Albumin 4.6 (3.5-5.0) g/dL Globulin 3.3 (1.7-4.1) g/dL Albumin/Globulin Ratio 1.4 (1.0-2.8) Lipase 219 (23-300) U/L Urine RBC 1-5/hpf (0-5/HPF) Urine WBC None seen (0-5/HPF) Ur Squamous Epith Cells 1-5 /hpf (0-5/HPF) Urine Bacteria None seen (None) Urine Mucus 1+ H (Negative) Ur Culture Indicated? Cult not indicated Vol Urine Centrifuged 10ml (spun) Point of care testing: Urine Dip Bedside Urine Glucose Negative Bedside Urine Bilirubin - Negative Bedside Urine Ketone - Negative Urine Specific [place] 1.030 Bedside Urine Occult Blood +/- Bedside Urine pH 6.0 Bedside Urine Protein +/- 15 Bedside Urine Urobilinogen - Negative Bedside Urine Nitrite - Negative Bedside Urine Leukocytes +/- 15 Esterase Imaging Data US - abdomen: Radiologist's Impression: PROCEDURE: US ABDOMEN LIMITED INDICATIONS: ruq pain TECHNIQUE: Real-time focused scanning was performed of the abdomen, with image documentation. COMPARISON: None. FINDINGS: Findings support a clinical diagnosis of acute cholecystitis. There are numerous mobile gallstones. There is gallbladder wall thickening and mild gallbladder wall edema. There is minimal fluid around the gallbladder. There is pain on examination. There are no dilated ducts. Common bile duct measures 5.8 mm. Visualized portions of the liver demonstrate increased echogenicity consistent with fatty change. No focal liver mass. Visualized portions the pancreas are unremarkable. IMPRESSION: 1. Constellation of findings would support a clinical diagnosis of acute cholecystitis. 2. Diffuse hepatic steatosis. Dictated by: Andrey Aguila M.D. on 12/22/2023 at 15:18 ECG Data Interpretation: Sinus rhythm rate 62 WV interval 134 QRS [address] changes MDM Narrative Medical decision making narrative: Patient 58-year-old male without significant past medical history presenting with right upper quadrant pain. Ultrasound confirms acute cholecystitis. Work is reviewed no leukocytosis, bilirubin 2.1, AST 266 ALT 261, lipase 219, creatinine 0.81 no other significant finding Ultrasound reviewed: Acute cholecystitis numerous mobile gallstones gallbladder wall thickening mild gallbladder wall edema minimal fluid in gallbladder no pain on examination Dr. Guzman updated on patient's symptoms test results and accepts patient Discharge Plan Departure Patient Disposition: Admitted as Observation Clinical Impression: Acute cholecystitis Admit Date/Time: 12/22/23 15:37 Admit Provider: Jostin Guzman
[2023-12-22] MEDS: PIPERACILLIN/TAZO 4.5 GM in SODIUM CHLORIDE 0.9% 100 ML IV (15:37)
--- NOTE | 2023-12-22 16:06 | PC.NURSE ---
Gave report to FARHAT Khan at 1603.
[2023-12-22] MEDS: DEXTROSE 5%-0.45% NS 1,000 ML 100 ML IV (16:31)
--- NOTE | 2023-12-22 18:08 | PC.NURSE ---
Admit note: Patient ambulated independently from gurney to bed. IVF initiated, remain NPO, SCDs in place. Oriented to room, environment, and plan of care. Call light within reach.
[2023-12-22] MEDS: PIPERACILLIN/TAZO 3.375 GM in SODIUM CHLORIDE 0.9% 100 ML IV (21:07)
[2023-12-22] MEDS: NICOTINE 14 PATCH 14 MG TOP (21:07)
[2023-12-22] MEDS: SODIUM CHLORIDE 0.9% 1,000 ML 100 ML IV (21:07)
[2023-12-23] VITALS: BP 132/60; PULSE 78; RESP 16; TEMP 36.5; O2SAT 96
[2023-12-23] MEDS: PIPERACILLIN/TAZO 3.375 GM in SODIUM CHLORIDE 0.9% 100 ML IV ×3 (03:09→20:42)
[2023-12-23 04:00] VITALS: BP 136/80; PULSE 74; RESP 16; TEMP 37; O2SAT 97
[2023-12-23 08:00] VITALS: BP 120/71; PULSE 65; RESP 19; TEMP 36.6; O2SAT 96
--- NOTE | 2023-12-23 08:20 | PM.HP.1 ---
History of Present Illness History of Present Illness Date Patient Seen: 12/22/23 Chief complaint: poss gallbladder, upper abd/back pain Narrative: 58-year-old man PMH active tobacco use admitted to [facility] with acute cholecystitis. He developed a severe right upper quadrant pain with referred pain to the shoulder and back and associated nausea. He presented to the [facility] Emergency Department for evaluation. Laboratory studies were notable for total bilirubin 2.1, AST 270, ALT 260 no leukocytosis. Abdominal ultrasound demonstrates cholelithiasis, gallbladder wall thickening and pericholecystic fluid. Common bile duct diameter within normal limits. No prior abdominal surgery. Pain is improved since admission he is currently receiving Zosyn Q 8 hour. [facility] Medical History Tobacco use Social History household members: spouse Smoking Status: Current every day smoker Meds Home Medications and Allergies Home Medications Medication Instructions Recorded Confirmed Type multivit with minerals-iron 18 1 tab PO DAILY 12/22/23 12/22/23 History mg-folic ac 400 mcg-vit K 25 mcg tablet (Adults Multivitamin) Allergies Allergy/AdvReac Type Severity Reaction Status Date / Time levofloxacin [From Levaquin] Allergy Severe Rash Verified 05/27/23 20:37 Exam Vital Signs (past 8 hours): - 12/23/23 04:00 12/23/23 04:00 Temperature 98.6 F Pulse Rate 74 Respiratory Rate 16 Blood Pressure 136/80 Pulse Oximetry 97 97 Oxygen Delivery Method Room Air Oxygen Flow Rate 0 Oxygen Delivery Method Room Air Oxygen Flow Rate 0 Narrative Exam Narrative: GENERAL: A well nourished, well developed adult man, resting comfortably, in no acute distress. HEENT: Normocephalic, atraumatic. No scleral icterus CHEST: Rising symmetrically. No audible wheezes CARDIOVASCULAR: Warm and well perfused. Regular rate ABDOMEN: Tender right upper quadrant no peritonitis. EXTREMITIES: Normal tone and without edema. NEUROLOGIC: Moving all extremities spontaneously. No gross motor deficits. Objective Labs 12/22/23 12:45 12/22/23 12:45 Labs: Laboratory Results - last 24 hr 12/22/23 12/22/23 12:30 12:45 WBC 7.1 RBC 5.00 Hgb 15.0 Hct 43.7 MCV 87.3 MCH 30.0 MCHC 34.3 RDW 13.8 Plt Count 214 Neut % (Auto) 58.7 Lymph % (Auto) 27.9 [place] % (Auto) 12.1 Eos % (Auto) 0.7 L Baso % (Auto) 0.6 Neut # (Auto) 4200 Lymph # (Auto) 2000 [place] # (Auto) 900 Eos # (Auto) 0 Baso # (Auto) 0 Sodium 137 Potassium 4.0 Chloride 105 Carbon Dioxide 26 BUN 12 Creatinine 0.81 Estimated GFR > 60 BUN/Creatinine Ratio 14.8 Glucose 95 Calcium 9.6 Total Bilirubin 2.1 H AST 266 H ALT 261 H Alkaline Phosphatase 101 Total Protein 7.9 Albumin 4.6 Globulin 3.3 Albumin/Globulin Ratio 1.4 Lipase 219 Urine RBC 1-5/hpf Urine WBC None seen Ur Squamous Epith Cells 1-5 /hpf Urine Bacteria None seen Urine Mucus 1+ H Ur Culture Indicated? Cult not indicated Vol Urine Centrifuged 10ml (spun) Assessment & Plan Assessment and plan (1) Acute cholecystitis: Problem details: 58-year-old man PMH active tobacco use admitted with symptoms and radiographic findings consistent with acute cholecystitis. Laboratory studies and imaging personally reviewed significant for cholelithiasis with wall thickening and pericholecystic fluid total bilirubin 2.0 and mild transaminitis. Elevated bilirubin may represent choledocholithiasis versus generalized inflammation will repeat laboratory studies this morning. I discussed with him recommendations that we proceed with a laparoscopic cholecystectomy. Overview of the operation was discussed. Operative risks including hemorrhage, infection, damage to surrounding structures, biliary injury, conversion to open were discussed. Questions have been answered and he is in agreement with this plan. A formal written consent will be obtained prior to operation. Status: Acute
[2023-12-23] MEDS: SODIUM CHLORIDE 0.9% 1,000 ML 100 ML IV ×2 (08:45→18:39)
[2023-12-23 09:11] LABS: Alanine Aminotransferase 242 IU/L (<50); Albumin 3.9 g/dL (3.5-5.0); Albumin Globulin Ratio 1.3 (1.0-2.8); Alkaline Phosphatase 98 U/L (38-126); Aspartate Aminotransferase 117 IU/L (17-59); BUN Creatinine Ratio 14.6 (6-22); Bilirubin Total 1.3 mg/dL (0.2-1.3); Blood Urea Nitrogen 14 mg/dL (9-20); Calcium 8.9 mg/dL (8.4-10.2); Carbon Dioxide 24 mmol/L (22-32); Chloride 107 mmol/L (98-107); Estimated Glomerular Filt Rate > 60 mL/min (>60); Globulin 2.9 g/dL (1.7-4.1); Glucose 82 mg/dL (80-110); HEMOLYSIS < 15 (0-50); Sodium 139 mmol/L (137-145); Total Protein 6.8 g/dL (6.3-8.2)
--- NOTE | 2023-12-23 11:39 | CM.DANOTE ---
Initial DCP Assessment Note Pt is a 58 yo male, resident of [place], presented with abd and back pain, surgery consulted and has scheduled patient for lap alfredo this afternoon. PCP: Unknown Payer: Sriram Bowen Reviewed chart, pt discussed in multidisciplinary rounds this morning. Patient indp, active, lives with spouse and expected to return home once recovered from his surgery. No barriers identified at this time to patient's safe discharge home w/family to assist; close outpatient f/u recommended. CM team will plan to follow closely in case any DC needs or concerns arise. JESENIA Ramirez Discharge Planning/Care Management Discharge Assessment Start: 12/23/23 11:37 Freq: Status: Active Protocol: Document 12/23/23 11:37 CORETTA (Rec: 12/23/23 11:39 CORETTA [id number]) Discharge Planning Assessment Assigned Comber Fixer JESENIA Sawant DPOA/Assigned Designee Name Medina Tapia, spouse Contact Information [phone] Advance Directives? No Advance Directives on File No History Provided By Patient,Medical Record Prior Living Arrangements House Household Members spouse Type of transporation used prior to Drives own vehicle admit Independent with ADL's Yes Is patient alert and oriented? Yes Barriers to Discharge No Discharge Plan Home Transportation Arrangement Spouse can provide transport at d/c Referrals Initiated None needed
[2023-12-23 12:00] VITALS: BP 128/62; PULSE 66; RESP 19; TEMP 36.4; O2SAT 96
[2023-12-23 16:00] VITALS: BP 138/69; PULSE 73; RESP 20; TEMP 36.4; O2SAT 96
--- NOTE | 2023-12-23 17:43 | PC.NURSE ---
Day shift: Pt's surgery scheduled for this evening was cancelled due to previous case taking longer than expected. New plan for OR tomorrow afternoon. Pt continues on IVF, now able to eat and will be NPO again starting at midnight tonight. Pt independent in room. Denies pain or nausea. Will continue to monitor.
--- NOTE | 2023-12-23 18:49 | PM.CALLCOV.1 ---
Call Coverage Note Note Date of Patient Contact: 12/23/23 Time of Patient Contact: 18:49 Narrative of Care Provided: Was scheduled for laparoscopic cholecystectomy today however no OR availability currently. We will reschedule for tomorrow with Dr. Ornelas. -nabeel for diet NPO after midnight
[2023-12-23 20:00] VITALS: BP 118/52; PULSE 67; RESP 16; TEMP 36.5; O2SAT 94
[2023-12-23] MEDS: NICOTINE 14 PATCH 14 MG TOP (20:43)
[2023-12-24] VITALS (11 sets, daily range): BP systolic 116–143; BP diastolic 60–81; PULSE 63–88; RESP 15–22; TEMP 36.1–36.6; O2SAT 91–97
--- NOTE | 2023-12-24 | PATH_ITS ---
[facility] Accession Number: [id number] No. of containers..01 Tissue . 01 Material submitted: . gallbladder - GALLBLADDER AND CONTENTS . 01 Diagnosis: Gallbladder And Contents, Cholecystectomy: Acute on chronic cholecystitis and cholelithiasis. [facility] 12/28/2023 1134 Local . 01 Electronically signed: . Velvet Giron MD, Pathologist NPI- [id number] . 01 Gross description: . The specimen is received in formalin labeled with the patient's name, , and gallbladder and contents, consists of a disrupted gallbladder measuring 8.4 x 2.6 x 1.2 cm with a full thickness defect measuring 1.2 cm in greatest dimension. The cystic duct margin is inked blue with no pericystic lymph node identified. The lumen contains a small amount of manning to brown viscous bile with numerous yellow bosselated calculi identified within the lumen and the container measuring up to 1.1 cm in greatest dimension, not grossly obstructing the cystic duct. The mucosa is manning and velvety with some areas of discoloration and no polyps or lesions grossly identified. The franco average 0.3 cm thick. Special Effects Person sections to include the cystic duct margin and full thickness sections are submitted in cassette A1. ([id number]) /MRV 12/27/2023 1342 Local . 01 Pathologist provided ICD-10: K81.2, K80.60 . 01 CPT . 894168 Specimen Comment: A courtesy copy of this report has been sent to [phone] Performed at: [facility] [address] [place] [address] [address] [facility], [place], [place] [id number] MD Sky Powell MD Phone: [phone]
[2023-12-24] MEDS: IBUPROFEN 600 MG TABLET PO (02:02)
[2023-12-24] MEDS: ACETAMINOPHEN 325 MG TABLET 650 MG PO (02:03)
--- NOTE | 2023-12-24 02:54 | PC.NURSE ---
Per Dr. Guzman, cassy to give patient tylenol and Ibuprofen at time of NPO.
[2023-12-24] MEDS: PIPERACILLIN/TAZO 3.375 GM in SODIUM CHLORIDE 0.9% 100 ML IV ×2 (03:40→11:30)
[2023-12-24] MEDS: SODIUM CHLORIDE 0.9% 1,000 ML 100 ML IV (03:46)
--- NOTE | 2023-12-24 10:34 | PM.PREOP ---
Pre-operative Note COVID-19 COVID-19 status: Not tested Interval Note History & Physical reviewed/Exam performed by Physician: Yes Changes to H&P: No H&P completed within 30 days and has changed as indicated here:: Discussed risks and benefits of laparoscopic cholecystectomy and he would like to proceed. ASA Class (for procedural sedation): II
[2023-12-24] MEDS: ACETAMINOPHEN IV 1,000 MG/100 ML VIAL 400 MG IV (11:05)
--- NOTE | 2023-12-24 11:10 | SUR.OPER ---
Supine on padded OR bed, head on pillow, safety belt at thigh, bilateral arms secured on padded arm board <90 degrees abduction. Legs uncrossed. Padded footboard in place. Tape over blanket to secure lower legs. Gel pad under bilateral heels.
[2023-12-24] MEDS: BUPIVACAINE 0.5% (PF) 30 ML, EPINEPHrine 0.15 MG INJ (11:21)
--- NOTE | 2023-12-24 12:32 | CM.DPC ---
DCP Cont. Reviewed EMR and team rounds for status updates. Pt was taken down to surgery late this morning for lap alfredo. Will continue to monitor for any post-op d/c recommendations for [employer]ESSIONAL assistance. Family will transport once medically cleared for d/c.
--- NOTE | 2023-12-24 12:42 | PM.OP.1 ---
Operative Date/Time/Diagnoses Date of procedure: 12/24/23 Time of procedure: 12:42 Pre-op diagnosis: Acute cholecystitis Post-op diagnosis: same Procedure & Clinicians Procedure: Laparoscopic cholecystectomy Same procedure as scheduled: Yes Surgeon: Werner Ornelas Anesthesia Type: General Operative Notes Procedure in detail: The patient was given preoperative antibiotics. The patient was brought to the operating room and placed on the table in the supine position. General endotracheal anesthesia was induced. The abdomen was prepped and draped. A time-out was performed. We made a 1 cm infraumbilical incision. We dissected down to the base of the umbilical stalk using cautery. We grasped the umbilical stalk with a Chayo clamp to elevate the abdominal wall. We scored the fascia in the midline with cautery. We pierced the peritoneum with a Peon clamp. The Ayden port was placed and the abdomen was insufflated to 15 mmHg. A 5 mm 30 degree laparoscopic was inserted. There was no evidence of any injury from the entry. Next, we placed 5 mm ports in the subxiphoid position and right upper quadrant at the midclavicular line and anterior axillary line. The patient was then positioned in reverse Trendelenburg and the table was tilted to the left. The gallbladder was fairly tense but was able to be grasped at the dome and retracted cephalad. There were adhesions of mesenteric tissue to the anterior wall which were taken down with a combination cautery dissection and blunt dissection. We then dissected the cystic structures with a combination of hook cautery and blunt dissection. During the dissection the gallbladder to rupture where it was being retracted in multiple yellow cholesterol stones spilled out. We continued the dissecti we eventually obtained a critical view. We placed clips on the cystic duct and artery and divided the cystic duct and artery sharply between the clips. The gallbladder was then dissected off the liver and placed in a specimen retrieval bag. An additional branch of the cystic artery was divided between clips about residential up the back wall of the gallbladder. We picked up all the stones and placed them in an additional endobag. We extensively irrigated the right upper quadrant until all the aspirate returned clear. A total of 4 L of irrigation was utilized to get all of the spilled stones. We then removed the 5 mm ports under direct vision we removed the Ayden port. We then injected some local into the fascia and closed the fascia with 2 interrupted 0 Vicryl sutures. The skin incisions were closed with 4-0 Monocryl and Steri-Strips were applied. Band-Aids were applied over the Steri-Strips. EBL: 20 mL Specimen: Gallbladder and contents Post-operative Condition: stable Disposition: PACU
--- NOTE | 2023-12-24 17:02 | PC.NURSE ---
Pt discharged home at 1640, escorted off floor in wheelchair accompanied by family and hospital staff. IV removed, discharge teaching provided including pain medication, wound care, diet recommendations and follow up appointment-Number for [facility] given to patient to call regarding a follow up appointment. Questions answered and concerns addressed. Patient left the floor with all belongings.
--- NOTE | 2023-12-29 11:54 | PC.NURSE ---
Late Entry: Piperacillin infusion initiated 12/22 at 1537 complete at 1608.
== END 2023-12-24 17:23 | disposition home or self-care (01) ==
LOC: ED 14:52 → AC 15:38
PROVIDERS: Surgery; Admitting Provider Surgery; Emergency Provider Emergency Medicine; Referring Provider Emergency Medicine; Visit Provider Surgery
PROC: 0FT44ZZ Resection of Gallbladder, Percutaneous Endoscopic Approach (ICD-10-PCS; CPT 47562; principal; 2023-12-24 13:30)
DX: K81.0 Acute cholecystitis (principal); F17.210 Nicotine dependence, cigarettes, uncomplicated
CPT/HCPCS: 47562; 36415; 76705; 80053; 81003; 81015; 83690; 85025; 93005; 96365; 96366; 96375; 99222; 99284; G0378; J0136; J0171; J1100; J1170; J1885; J2405; J2543; J2704; J3010